=== PATIENT | male | born 1930 | race Caucasian/White ===

== ENCOUNTER → 2016-11-15 | Outpatient (CLI) | payer OTHER ==
[~2016-11-15] MED LIST: ACETAMINOPHEN325 MG PO; ACETAMINOPHEN650 M3 PO; ALDACTONE PO; ALDACTONE25 MG PO; ALEVE PO; ASPIRIN PO; ASPIRIN81 MG PO; ATORVASTATIN CA80 MG PO; AVANDIA PO; CENTRUM SILVER PO; CLOPIDOGREL75 MG PO; COUMADIN PO; CRANBERRY PO; ELIQUIS2.5 MG PO; FAMOTIDINE PO; FLAX SEED OIL1000 MG PO; GLIPIZIDE10 MG PO; GLUCOTROL PO; GLUCOTROL XL PO; HCTZ PO; K-DUR10 MEQ PO; LANOXIN125 MCG PO; LASIX PO; LASIX20 MG PO; LIPITOR80 MG PO; LISINOPRIL PO; LOPRESSOR PO; LORTAB 10/500 T1 TAB PO; LOTREL 5/20 MG1 CAP PO; METFORMIN PO; METOPROLOL TAR25 MG PO; NABUMETONE PO; NITROGLYGERIN0.4 MG SL; NORCO 5/325 TAB1 TAB PO; PEPCID OTC PO; VITAMIN B-12 PO; VYTORIN 10/40 T1 TAB PO; ZESTRIL2.5 MG PO
--- NOTE | ~2016-11-15 | CT55 ---
[facility] A Service of [facility] RADIOLOGY TEXT RESULTS PATIENT: KILO TOMLIN LOCATION: [facility] : 31 UNIT #: [id number] AGE: [address]: Bob Ugalde MD SEX: M ORDER DR: [id number] [facility] [address] [place], [place] [address] [id number] O MR#: [id number] [facility] #: [id number] NAME: KILO TOMLIN : 1930 SEX: M STUDY DATE/TIME: 11/15/2016 UNIT: [facility] ROOM: STUDY DESCRIPTION: CT Chest W Con Attending Physician: Bob Ugalde M.D. Referring Physician: Bob Ugalde M.D. Ordering Physician: Bob Ugalde M.D. Primary Care Physician: Bob Ugalde M.D. MEDICAL IMAGING REPORT This report is preliminary unless electronic signature is present EXAM CT chest with contrast 11/15/2016 09:46 hours HISTORY 86-year-old man with history of type 2 diabetes, hypertension for further evaluation of the left upper lung mass found on chest x-ray 11/08/2016. Chest x-ray: Was obtained for symptoms of cough and congestion for 3 weeks. Patient has no current chest complaints. COMPARISON Chest x-ray 11/08/[address] images were obtained from the thoracic inlet through the adrenal glands. Sagittal and coronal reconstructions were performed. Contrast was Isovue-370 70 mL IV. Total exam DLP 310 mGy-cm. The CT exam was performed with one or more of the following radiation dose reduction techniques: automatic exposure control, adjustment of mA and/or kV according to patient size, and iterative reconstruction. FINDINGS Images through the thoracic inlet demonstrate enlarged right lobe of the thyroid with posterior calcifications and an anterior mixed density 2.5 cm nodule which is indeterminate. This extends into the retrosternal region. Images through the chest are most remarkable for a homogeneous soft tissue mass in the left upper lobe extending from the left hilum contiguously to the superior and lateral pleura corresponding to the density seen on chest film. This measures approximately 7.1 cm transverse x 6.7 cm anterior to posterior and 9.7 cm cephalocaudad and most likely represents a primary lung carcinoma. It is abutting the left upper lobe bronchus and encases the bronchus. There is no definite postobstructive pneumonia seen. There [facility] A Service of [facility] RADIOLOGY TEXT RESULTS PATIENT: KILO TOMLIN LOCATION: [facility] : 31 UNIT #: [id number] AGE: [address]: Bob Ugalde MD SEX: M ORDER DR: are small prevascular nodes measuring 1 cm which are indeterminate. There is no left pleural fluid. Elsewhere the lungs demonstrate no nodules. There is no evidence of pneumonia. Limited views through the upper abdomen demonstrate a normal appearance to the visualized portions of the liver and adrenal glands which are not imaged in their entirety. Bone window images demonstrate degenerative changes in the thoracic spine. There are no fractures. No lytic or blastic bone lesions. IMPRESSION 1. This CT chest confirms the presence of a large homogeneous soft tissue mass extending from an encasing left upper lobe bronchus to the os posterior and lateral pleura measuring up to 7.1 x 6.7 x 9.7 cm. There are two small prevascular lymph nodes measuring only 1 cm which are indeterminate. There is no pleural fluid and no postobstructive pneumonia is seen at this time. 2. The lungs are otherwise clear. 3. The visualized portions of the liver and adrenal glands are normal. These organs are not imaged in their entirety. 4. No bone metastases seen. 5. Enlarged right lobe of thyroid with 2.5 cm predominantly cystic lesion seen with a separate smaller partially calcified lesion posteriorly. These are indeterminate. 6. Suggest surgical consultation. Further evaluation of the left upper lobe mass could be obtained with bronchoscopy, PET CT or CT-guided biopsy. Dictated by... Bessy Yanez M.D. THIS IS AN ELECTRONICALLY VERIFIED REPORT Bessy Yanez M.D. at 11/15/2016 1:34 PM ISAI/pérez TD: 11/15/2016 12:02 JOB #: [id number] MEDICAL IMAGING REPORT COPY
[2016-11-15 10:31] LABS: POC - CREATININE 1.05 mg/dL (0.64-1.27); POC - GFR >60.0 mL/min (>60)
== END | disposition home or self-care (01) ==
LOC: CCAT 09:13
PROVIDERS: Family Medicine
DX: R91.8 Other nonspecific abnormal finding of lung field (principal); E04.9 Nontoxic goiter, unspecified
CPT/HCPCS: 71260; 82565; Q9967

== ENCOUNTER → 2016-12-02 | Outpatient (CLI) | payer OTHER ==
--- NOTE | ~2016-12-02 | US128 ---
[id number] [facility] [address] [place], [place] [address] [id number] O MR#: [id number] Acc #: [id number] NAME: KILO TOMLIN : 1930 SEX: M STUDY DATE/TIME: 12/02/2016 14:52 UNIT: [facility] ROOM: STUDY DESCRIPTION: Thyroid Attending Physician: Bob Ugalde M.D. Referring Physician: Bob Ugalde M.D. Ordering Physician: Bob Ugalde M.D. Primary Care Physician: Bob Ugalde M.D. MEDICAL IMAGING REPORT This report is preliminary unless electronic signature is present EXAM Ultrasound of the thyroid gland INDICATION Thyroid nodules. These were identified on a CT of the chest which was performed 11/15/2016. TECHNIQUE Navarro-scale and color Doppler sonographic images were obtained through the thyroid gland. FINDINGS Right lobe measures 4.6 x 1.6 x 2.3 cm. Left lobe measures 3.8 x 1.2 x 1.3 cm. Isthmus measures about 1 cm in thickness. The thyroid gland is extremely heterogeneous and multiple thyroid nodules are seen. In the inferior pole of the right lobe of thyroid gland, there is a very heterogeneous nodule with some punctate calcifications within it which measures up to 1.9 x 1.4 x 1.1 cm. A hyperechoic nodule is seen adjacent to it measuring 5 x 4 x 5 mm. Pharmaceutical Physician measures a third nodule within the superior pole of the right lobe of the thyroid gland which I am not completely convinced it is actually a nodule. Potentially it may reflect some heterogeneous thyroid parenchyma. Abutting the isthmus, there is an additional very complex nodule with calcification within it measuring up to 2.5 x 1.3 x 2.4 cm. Dense calcification is seen within the left lobe of the thyroid gland. This was also seen on the patient's CT and there is a hypoechoic nodule seen within the left lobe of the thyroid gland measuring 1.3 x 0.7 x 0.8 cm. IMPRESSION 1. This patient has multiple bilateral thyroid nodules. 2 of these located within the right lobe of the thyroid gland do meet size criteria for percutaneous sampling and this is recommended. These include a complex nodule within the inferior pole of the right lobe of the thyroid gland measuring 2.0 x 1.4 x 1.4 cm, and an additional 1 abutting the isthmus measuring up to 2.5 x 1.3 x 2.4 cm. 2. Pharmaceutical Physician measures a third nodule within the superior pole of the right lobe of the thyroid gland which I am not completely convinced is a true nodule, however, attention to this area as well as the patient's additional smaller nodules and a 6-month follow up examination is recommended. Dictated by... Marcelina Gordon M.D. THIS IS AN ELECTRONICALLY VERIFIED REPORT Marcelina Gordon M.D. at 12/03/2016 4:52 PM BUNNY/lino TD: 12/03/2016 12:39 JOB #: [id number] MEDICAL IMAGING REPORT Page 1 of 1 COPY
== END | disposition home or self-care (01) ==
LOC: CGUS 14:30
DX: E04.2 Nontoxic multinodular goiter (principal)
CPT/HCPCS: 76536

== ENCOUNTER → 2016-12-14 | Outpatient (CLI) | payer OTHER ==
--- NOTE | ~2016-12-14 | MR17 ---
[facility] A Service of [facility] RADIOLOGY TEXT RESULTS PATIENT: KILO TOMLIN LOCATION: [facility] : 31 UNIT #: [id number] AGE: [address]: Tiago Ortega MD SEX: M ORDER DR: [id number] [facility] [address] [place], [place] [address] [id number] O MR#: [id number] Acc #: [id number] NAME: KILO TOMLIN : 1930 SEX: M STUDY DATE/TIME: 12/14/2016 14:59 UNIT: [facility] ROOM: STUDY DESCRIPTION: MR Brain WWo Contrast Attending Physician: Tiago Ortega M.D. Referring Physician: Tiago Ortega M.D. Ordering Physician: Tiago Ortega M.D. Primary Care Physician: Bob Ugalde M.D. MRI CENTER REPORT This report is preliminary unless electronic signature is present. EXAM Brain MRI with and without contrast. HISTORY Lung cancer diagnosed November 2016. Chronic history of dizziness. Evaluate for brain malignancy suspected. TECHNIQUE Multiplanar imaging of the brain was performed with and without contrast. 17 mL of MultiHance was used. FINDINGS On diffusion-weighted images, there is no evidence of abnormal restricted diffusion to suggest a recent infarct. The routine brain images show atrophy with moderate chronic ischemic changes in the periventricular deep white matter. There is no evidence of mass effect. No hemorrhages are seen on gradient echo imaging. Postcontrast images show no abnormal enhancement. Extraaxial structures are unremarkable. IMPRESSION Atrophy with moderate chronic ischemic changes around the ventricles. No acute findings. No evidence of metastatic disease. Dictated by... Scott Salmeron M.D. THIS IS AN ELECTRONICALLY VERIFIED REPORT Scott Salmeron M.D. at 12/15/2016 4:28 PM KALPANA/nesha TD: 12/15/2016 10:35 [facility] A Service of [facility] RADIOLOGY TEXT RESULTS PATIENT: KILO TOMLIN LOCATION: [facility] : 31 UNIT #: [id number] AGE: [address]: Tiago Ortega MD SEX: M ORDER DR: JOB #: [id number] MRI CENTER REPORT Page 1 of 1 COPY
== END | disposition home or self-care (01) ==
LOC: CMRI 13:23
DX: C34.12 Malignant neoplasm of upper lobe, left bronchus or lung (principal); R01.1 Cardiac murmur, unspecified; I67.82 Cerebral ischemia; G31.9 Degenerative disease of nervous system, unspecified
CPT/HCPCS: 70553; 93306; A9577

== ENCOUNTER 2017-04-27 18:38 | Inpatient (IN) | payer OTHER ==
[~2017-04-27] VITALS: Ht 165.1 cm; Wt 81.2 kg
--- NOTE | ~2017-04-27 | CO ---
Unit #: [id number] #: [id number] Patient: KILO TOMLIN [id number] [address] [place], [place] [address] [id number] I MR#: [id number] NAME: KILO TOMLIN ROOM: 575 Age: 86 Sex: M Admission Date: 04/27/2017 : 1930 Attending Physician: Manolo Escamilla M.D. Primary Care Physician: Bbo Ugalde M.D. Requesting Physician: Amanda Fierro M.D. Consultation Date: 04/28/2017 CONSULTATION REPORT REASON FOR CONSULTATION Lung cancer, please evaluate. HISTORY OF PRESENT ILLNESS Mr. 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 His daughter called the office to say that he was very short of breath but did not feel like coming to the office and ordered a chest x-ray done. I recommended that his chest x-ray have a CT scan of the chest, rule out PE protocol given its recent chemoradiation therapy and recent diagnosis of malignancy. Following his CT scan, he was sent to the emergency room for further shortness of breathing and admitted with atrial fibrillation with rapid rate, congestive heart failure, and likely acute non ST CO and given elevated troponin level of 4.46. Today he tells me that he is tired and gets short of breath every time he exerts himself. Some of this has been going on for about to weeks after completion of radiation therapy when he gets winded. He tells me his appetite has been variable. PAST HISTORY Stage 3 lung cancer diagnosed in 11/2016 when voice hoarseness led to a chest x-ray with the findings of a large mass in the left upper chest measuring 8.5 x 7.2 x 8.6 cm. Bronchoscopy with biopsy revealed the left upper lobe tumor with paralysis of the vocal cord, with pathology showing a poorly differentiated non-small cell lung cancer. He states it is a stage 3A and underwent concurrent chemoradiation therapy with weekly Taxol-Carboplatin and radiation therapy completed on 02/21/2017. Other medical problems including a history of type 2 diabetes approximately 10 or 15 years, hypertension, cholesterolemia, but no history of coronary artery disease or stroke. PAST SURGICAL HISTORY Knee replacement and hip replacement. FAMILY HISTORY Negative for cancer in the immediate family SOCIAL HISTORY 25 pack year history of smoking. Quit smoking 30 years ago, does not drink any alcohol. He is single, . His youngest daughter lives with him and is primary caregiver. REVIEW OF SYSTEMS Fourteen point review of systems was taken. Unit #: [id number] #: [id number] Patient: KILO TOMLIN CONSTITUTIONAL: Fatigue. Appetite has been variable but generally decreased. EYES: Negative. EARS, NOSE, MOUTH AND THROAT: Negative. CARDIOVASCULAR: No chest pain or palpitations. RESPIRATORY: Shortness of breath without any exertion starting about two weeks after completion of radiation therapy, which will be in early March. Cough with scant expectoration. No hemoptysis. GASTROINTESTINAL: Negative. GENITOURINARY: Negative. NEUROLOGIC: Negative. ALLERGIC/IMMUNOLOGIC: Negative. SKIN: Negative. PSYCHIATRIC: Negative. LYMPHATICS: Negative. PHYSICAL EXAMINATION GENERAL: On examination he is awake, alert and oriented x3. VITAL SIGNS: Temperature 98, pulse 82, blood pressure is 126/66, respiratory rate 16. O2 is 98% on 2 L. HEENT: Eyes - Pupils are equal, react well to light. He was a frail, elderly man, awake, alert and oriented x3. Mild pallor, no icterus. Mucous membranes are dry. NECK: No adenopathy, JVD, thyromegaly. CARDIOVASCULAR: First and second heart sounds are heard. Irregular with a rapid rate. LUNGS: Bilateral rales. ABDOMEN: Soft, nontender. Bowel sounds are active. No organomegaly. EXTREMITIES: Show 1+ edema. Pulses are felt. NEUROLOGIC: He is awake, alert and oriented x3 without any focal findings. SKIN: Negative. LYMPHATICS: Negative. PSYCHIATRIC: Normal affect. DIAGNOSTIC STUDIES LABORATORY STUDIES: TSH 2.13. Basic metabolic panel shows a BUN of 17, creatinine 1, EGFR is 68.3. CBC shows a white count of 7.6, hemoglobin is 11.3, platelet count is 236,000. Her BNP is 719, troponin level is 4.46. IMAGING STUDIES: CT angio of the chest was personally reviewed by me and overall shows his previously known left hilar and upper lobe mass, which is 7 x 5.6 cm, which is smaller with extensive collapse of the left upper lobe from postobstructive. In addition, he has got some nodular densities in the left leg lung with the largest measuring 2.3 cm with a recommendation of being followed. ASSESSMENT AND PLAN Mr. 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 I discussed the situation with patient's and subsequently Dr. Jackson of cardiology about his overall prognosis of lung cancer. I discussed that he was treated with a curative intent. At this point he has no evidence of distant metastatic disease. After discussion, Dr. Jackson planned to do a cardiac catheterization, Unit #: [id number] #: [id number] Patient: KILO TOMLIN angioplasty and stenting if necessary. These were all discussed with Mr. Tomlin. Thank you for allowing us to participate in his care. Dictated by... Robert Mcintosh/monie TD: 04/29/2017 07:42 JOB #: [id number] CONSULTATION REPORT Page 1 of 1 X Tiago Ortega MD X CONSULTATION REPORT
--- NOTE | ~2017-04-27 | EKG ---
PATIENT: KILO TOMLIN UNIT #: [id number] Ventricular Rate: 90 BPM Atrial Rate: 100 BPM QRS Duration: 108 ms Q-T Interval: 368 ms QTC Calculation(Bezet): 450 ms Calculated R Williams: -14 degrees Calculated T Williams: 94 degrees Diagnosis Line: Atrial fibrillation Diagnosis Line: Septal infarct (cited on or before 27-APR-2017) Diagnosis Line: Abnormal ECG Diagnosis Line: When compared with ECG of 27-APR-2017 19:36, Diagnosis Line: (unconfirmed) Diagnosis Line: Vent. rate has decreased BY 46 BPM Diagnosis Line: ST no longer depressed in Anterior leads Diagnosis Line: Confirmed by EVER OCHOA MD ([id number]) on 04/29/2017 Diagnosis Line: 4:57:13 PM INTERPRETING MD: GABRIELA LOW
--- NOTE | ~2017-04-27 | EKG ---
PATIENT: KILO TOMLIN UNIT #: [id number] Ventricular Rate: 73 BPM Atrial Rate: 77 BPM QRS Duration: 100 ms Q-T Interval: 384 ms QTC Calculation(Bezet): 423 ms Calculated R [place]: 1 degrees Calculated T [place]: 88 degrees Diagnosis Line: Atrial fibrillation with premature ventricular or Diagnosis Line: aberrantly conducted complexes Diagnosis Line: Minimal voltage criteria for LVH, may be normal Diagnosis Line: variant Diagnosis Line: Septal infarct (cited on or before 27-APR-2017) Diagnosis Line: Abnormal ECG Diagnosis Line: When compared with ECG of 28-APR-2017 06:39, Diagnosis Line: (unconfirmed) Diagnosis Line: Questionable change in initial forces of Septal Diagnosis Line: leads Diagnosis Line: Confirmed by EVER OCHOA MD ([id number]) on 04/29/2017 Diagnosis Line: 5:16:32 PM INTERPRETING MD: GABRIELA LOW
--- NOTE | ~2017-04-27 | HP ---
Unit #: [id number] #: [id number] Patient: KILO TOMLIN [id number] [address] [place], [place] [address] [id number] I MR#: [id number] NAME: KILO TOMLIN. ROOM: 575 Age: 86 Sex: M Admission Date: 04/27/2017 : 1930 Attending Physician: Amanda Fierro M.D. Primary Care Physician: Bob Ugalde M.D. HISTORY AND PHYSICAL CHIEF COMPLAINT Congestive heart failure, atrial fibrillation with RVR, NSTEMI. HISTORY This very pleasant 86-year-old male with type 2 diabetes mellitus, DJD, lung cancer, is admitted for congestive heart failure. Patient was diagnosed with lung cancer in November, and underwent chemotherapy and radiation, followed by Dr. Ortega. With increasing shortness of breath particularly with exertion over the past three weeks. He was sent for a CTA of his chest. The CTA of his chest showed the patient's lung mass, which is mildly improved, but also shows new congestive heart failure. He was therefore sent to the ER where his initial EKG showed AFib with RVR, rate [address] depression laterally. In the ER he was bolused with 20 mg of IV Cardizem, started on a drip of 10 mg/hour and given 40 mg of IV Lasix, with improvement of his shortness of breath. He denies any chest discomfort with this, or any other symptoms besides the shortness of breath. He also denies cough, fever, sweats and chills. A call was also made to Dr. Plascencia who will be seeing the patient in the morning. Labs are notable for an elevated troponin of 4.46. No previous history of heart disease. PAST MEDICAL HISTORY 1. Lung cancer, followed by Dr. Ortega diagnosed 11/2016. Patient completed a course of XRT and chemotherapy. He has associated vocal cord paralysis. 2. AODM x21 years. 3. Previous history of hypertension and hyperlipidemia. 4. DJD. 5. Bilateral total knee replacement. 6. Left total hip replacement. 7. Cataract extraction. 8. Of note, I do see an echocardiogram performed 10/2012, which was normal with normal ejection fraction. ALLERGIES No known drug allergies. HOME MEDICATIONS Glipizide 10 mg b.i.d. and metformin 1,000 mg b.i.d. FAMILY HISTORY CAD. Unit #: [id number] #: [id number] Patient: KILO TOMLIN SOCIAL HISTORY The patient lives with his daughter. He stopped smoking 30 years ago. Does not drink alcohol. REVIEW OF SYSTEMS Notable for shortness of breath, lung cancer, vocal cord paralysis, AODM, above mentioned surgeries. Previous history of hypertension and hyperlipidemia. All other systems were reviewed and are otherwise negative. PHYSICAL EXAMINATION GENERAL: Very pleasant 86-year-old young appearing male who sounds a bit short of breath but otherwise is in no acute distress. VITAL SIGNS: Temperature 97.6. Initial heart rate was read as 63 but is actually 136, respirations 18, blood pressure 119/86, O2 saturation is 96% on room air. Heart rate now is down to about 110 on 10 mg/hour of Cardizem drip. HEENT: Eyes - PERRLA, extraocular muscles are intact although patient has a slightly disconjugate gaze. Pharynx is benign with poor dentition. NECK: Supple without adenopathy or thyromegaly. Elevated JVD noted. CHEST: Does reveal crackles bilaterally. CARDIAC: Tachy S1 and S2 without definite murmur. ABDOMEN: Bowel sounds are present, no hepatosplenomegaly, tenderness or masses. EXTREMITIES: Trace pedal edema. Pedal pulses are diminished. NEUROLOGIC: Patient is awake, alert and oriented. Cranial nerves are intact. Equal strength throughout. DIAGNOSTIC STUDIES ADMISSION LABS: Troponin 4.02 and 4.46. Unfortunately our [employer] system went down as I am dictating this note. I did review the labs earlier, and the patient had a glucose of about 172. I believe the CBC was normal. CARDIOLOGY STUDIES: EKG shows AFib, RER rate 136, left axis deviation, ST wave abnormalities noted laterally. Mild ST depression laterally. IMAGING STUDIES: Chest x-ray bilateral pleural effusion with left hilar mass and likely left upper lobe postobstructive consolidation. Possible left hilar mass extending from the left upper lobe mass. Congestive heart failure. CTA of the chest negative for PE. Does show left upper lobe and left hilar mass with extensive atelectasis. However, the mass is smaller showing some response to treatment. New large left pleural effusion and small to moderate right pleural effusion suggestive of congestive heart failure with ground glass opacities. Collapse of the left upper lobe postobstructive with possible pneumonia. New left lower lobe infiltrates, which could be inflammatory versus infectious versus atelectasis versus congestive heart failure. New nodular left lung densities. Atherosclerotic heart disease and calcification of the aortic valve. ASSESSMENT 1. Non ST elevation MD and congestive heart failure. 2. Atrial fibrillation with RVR. 3. Lung cancer diagnosed 11/2016, status post chemotherapy and XRT. 4. Postoperative infiltrates likely atelectasis as patient denies cough, fever, sweats, chills or chest pain. No symptoms of pneumonia. Unit #: [id number] #: [id number] Patient: KILO TOMLIN 5. AODM. 6. Hyperlipidemia. 7. GERD. PLANS 1. Cardizem and heparin drip, aspirin, very low dose Lopressor. One dose of Lasix was given in the ER. 2. Repeat labs and cardiac markers in the morning. 3. Cardiology consultation. Dr. Plascencia was notified and the case was discussed with her in the ER. 4. Obtain echo and TSH. 5. Will notify oncology of patient's admission. 6. No indications for antibiotics at this time. 7. Gastritis prophylaxis. 8. Overall prognosis is guarded given patient's lung cancer. 9. I discussed advanced directives with the patient and family, and family states that patient would want to be resuscitated, but would not want prolonged life support. Dictated by Amanda Fierro M.D. AML/ts TD: 04/28/2017 05:03 JOB #: [id number] HISTORY AND PHYSICAL Page 1 of 1 X Amanda Fierro MD HISTORY AND PHYSICAL
--- NOTE | ~2017-04-27 | CR72 ---
[facility] A Service of [facility] RADIOLOGY TEXT RESULTS PATIENT: KILO TOMLIN LOCATION: [place] [address] : 31 UNIT #: [id number] AGE: [address]: Henry Herrera MD SEX: M ORDER DR: [id number] [place] [id number] [facility] [place], [place] [address] [id number] I MR#: [id number] Acc #: [id number] NAME: KILO TOMLIN : 1930 SEX: M STUDY DATE/TIME: 05/01/2017 6:19 UNIT: [facility] ROOM: [facility] STUDY DESCRIPTION: CR Chest Single View Portable Attending Physician: Manolo Escamilla M.D. Ordering Physician: Manolo Escamilla M.D. Primary Care Physician: Bob Ugalde M.D. MEDICAL IMAGING REPORT This report is preliminary unless electronic signature is present EXAM Portable AP view of the chest COMPARISON April 28, 2017; April 27, 2017; November 08, [address] chest dated April 27, 2017. INDICATION 86-year-old male with dyspnea for 4 days. History of CHF and atrial fibrillation. History of lung cancer diagnosed in November 2016. Additional history includes chest pain and hypertension. FINDINGS AND IMPRESSION There is improved left basilar atelectasis and improved left apical opacity, likely some residual mass in the left pulmonary apex. Imaging followup to ensure resolution recommended. There are increased opacities throughout the right lung which may reflect atelectasis given diminished right-sided lung volume from comparison. There appears to be improved trace right pleural effusion. No evidence of pneumothorax. Cardiomediastinal silhouette is within normal limits. Dictated by... Zay Sawyer M.D. THIS IS AN ELECTRONICALLY VERIFIED REPORT Zay Sawyer M.D. at 05/10/2017 1:19 AM Marylin TD: 05/02/2017 03:22 JOB #: [id number] [facility] A Service of [facility] RADIOLOGY TEXT RESULTS PATIENT: KILO TOMLIN LOCATION: [facility] [id number] : 31 UNIT #: [id number] AGE: [address]: Henry Herrera MD SEX: M ORDER DR: MEDICAL IMAGING REPORT Page 1 of 1 COPY
--- NOTE | ~2017-04-27 | EKG ---
PATIENT: KILO TOMLIN UNIT #: [id number] Ventricular Rate: 98 BPM Atrial Rate: 127 BPM QRS Duration: 108 ms Q-T Interval: 364 ms QTC Calculation(Bezet): 464 ms Calculated R [place]: -6 degrees Calculated T [place]: 123 degrees Diagnosis Line: Atrial fibrillation Diagnosis Line: Voltage criteria for left ventricular hypertrophy Diagnosis Line: ST and T wave abnormality, consider lateral ischemia Diagnosis Line: Abnormal ECG Diagnosis Line: When compared with ECG of 29-APR-2017 06:07, Diagnosis Line: ST no longer depressed in Anterior leads Diagnosis Line: Inverted T waves have replaced nonspecific T wave Diagnosis Line: abnormality in Lateral leads Diagnosis Line: Confirmed by MAYE PLATT MD ([id number]) on Diagnosis Line: 05/02/2017 4:51:32 PM INTERPRETING MD: CRISTIAN
--- NOTE | ~2017-04-27 | EKG ---
PATIENT: KILO TOMLIN UNIT #: [id number] Ventricular Rate: 92 BPM Atrial Rate: 326 BPM QRS Duration: 96 ms Q-T Interval: 370 ms QTC Calculation(Bezet): 457 ms Calculated R [place]: -11 degrees Calculated T [place]: 62 degrees Diagnosis Line: Atrial fibrillation Diagnosis Line: Voltage criteria for left ventricular hypertrophy Diagnosis Line: Nonspecific ST and T wave abnormality , probably Diagnosis Line: digitalis effect Diagnosis Line: Abnormal ECG Diagnosis Line: When compared with ECG of 30-APR-2017 12:40, Diagnosis Line: (unconfirmed) Diagnosis Line: Nonspecific T wave abnormality now evident in Diagnosis Line: Inferior leads Diagnosis Line: Confirmed by MAYE PLATT MD ([id number]) on Diagnosis Line: 05/02/2017 4:57:57 PM INTERPRETING MD: CRISTIAN
--- NOTE | ~2017-04-27 | CR72 ---
[facility] A Service of [facility] & [facility] RADIOLOGY TEXT RESULTS PATIENT: KILO TOMLIN LOCATION: [place] [address] : 31 UNIT #: [id number] AGE: [address]: MEGGAN MCCORMICK V SEX: M ORDER DR: [id number] [facility] [address] [place], [place] [address] [id number] I MR#: [id number] Acc #: [id number] NAME: KILO TOMLIN : 1930 SEX: M STUDY DATE/TIME: 04/28/2017 11:39 UNIT: [facility] ROOM: [facility] STUDY DESCRIPTION: CR Chest Single View Portable Attending Physician: Meggan Mccormick M.D. Ordering Physician: Cristo Jackson M.D. Primary Care Physician: Bob Ugalde M.D. MEDICAL IMAGING REPORT This report is preliminary unless electronic signature is present EXAM Portable chest 04/28/2017 COMPARISON 04/27/2017 CLINICAL HISTORY Chest pain, short of air for 1 day. FINDINGS No interval change since 04/27 with left upper chest, consolidation, elevated left hemidiaphragm and right pleural effusion. There is no pneumothorax or new infiltrate. Dictated by... Dilip Zamora M.D. THIS IS AN ELECTRONICALLY VERIFIED REPORT Dilip Zamora M.D. at 04/28/2017 4:58 PM TEV/chang TD: 04/28/2017 14:30 JOB #: [id number] MEDICAL IMAGING REPORT Page 1 of 1 COPY
--- NOTE | ~2017-04-27 | DS ---
Unit #: [id number] #: [id number] Patient: KILO TOMLIN [id number] [address] [address] [id number] I MR#: [id number] NAME: KILO TOMLIN. ROOM: 575 Age: 86 Sex: M Admission Date: 04/27/2017 : 1930 Discharge Date: 05/05/2017 Attending Physician: Henry Herrera M.D. Primary Care Physician: Bob Ugalde M.D. DISCHARGE SUMMARY DISCHARGE DIAGNOSES 1. Non-ST elevation myocardial infarction. 2. Atrial fibrillation with rapid ventricular response. 3. Lung cancer. 4. Acute systolic heart failure. 5. Hypertension. 6. Moderate aortic stenosis. 7. Severe pulmonary hypertension. HOSPITAL COURSE The patient is an 86-year-old male who presented to [facility] on 04/27/17 secondary to increasing shortness of breath. Apparently, the patient was being worked up for the shortness of breath and he had a CTA of his chest that revealed a lung mass and new congestive heart failure. Patient's initial EKG showed AFib with rapid ventricular response and some ST depression. The patient's troponin was noted to be 4.46. Patient was taken for heart cath and showed to have an ejection fraction of about 40%. He was noted to have 70% stenosis of the LAD at the first diagonal and 100% after the first diagonal. Left circumflex was noted to be normal proximally, but the first OM was 99%. The mid left circumflex was also 99%. The RCA was 90% proximally, 75% mid, and 60% distally. The findings were discussed with Dr. Ortega and it was ultimately decided that the patient's plan going forward would be determined by the stage of his lung cancer. The patient is to undergo outpatient PET scan and if the patient has reasonable treatment options, then patient will proceed with PCI and stenting. Patient was started on a beta rowena whose dosage was somewhat difficult to titrate to maintain a heart rate less than 110. Patient had a brief episode of hypotension, which has since resolved. Patient was started on Lasix and an SUZIE inhibitor for his new heart failure. Given control of his heart rate and no planned intervention for his non-ST elevation myocardial infarction/coronary artery disease, the patient is being discharged home to follow up as an outpatient with both cardiology and oncology. DISCHARGE MEDICATIONS 1. Tylenol 650 p.o. q.4 hours p.r.n. 2. Eliquis 2.5 mg p.o. b.i.d. Unit #: [id number] #: [id number] Patient: KILO TOMLIN 3. Glucophage 1000 mg p.o. b.i.d. 4. Atorvastatin 80 mg p.o. q.h.s. 5. Lopressor 25 mg p.o. b.i.d. 6. Furosemide 20 mg p.o. in the morning. 7. Lisinopril 2.5 mg p.o. q.h.s. 8. Plavix 75 mg daily. 9. Spironolactone 12.5 mg p.o. daily. 10. Glipizide 10 mg p.o. b.i.d. FOLLOWUP Patient should follow up with Dr. Manuel Carson, July 12, at 2:00 p.m. Additionally, the patient should follow up with Dr. Ortega next week. Dictated by... Robert Gonzalez/comfort TD: 05/09/2017 08:49 JOB #: [id number] DISCHARGE SUMMARY Page 1 of 1 X Henry Herrera MD X DISCHARGE SUMMARY
--- NOTE | ~2017-04-27 | EKG ---
PATIENT: KILO TOMLIN UNIT #: [id number] Ventricular Rate: 136 BPM Atrial Rate: 131 BPM QRS Duration: 98 ms Q-T Interval: 312 ms QTC Calculation(Bezet): 469 ms Calculated R [place]: -11 degrees Calculated T [place]: 119 degrees Diagnosis Line: Atrial fibrillation with rapid ventricular Diagnosis Line: response Diagnosis Line: Septal infarct , age undetermined Diagnosis Line: ST and T wave abnormality, consider lateral ischemia Diagnosis Line: Abnormal ECG Diagnosis Line: When compared with ECG of 28-JUL-2009 08:59, Diagnosis Line: Atrial fibrillation has replaced Sinus rhythm Diagnosis Line: Septal infarct is now Present Diagnosis Line: ST now depressed in Anterolateral leads Diagnosis Line: T wave inversion now evident in Lateral leads Diagnosis Line: Confirmed by EVER OCHOA MD ([id number]) on 04/29/2017 Diagnosis Line: 4:51:10 PM INTERPRETING MD: GABRIELA LOW
--- NOTE | ~2017-04-27 | CR72 ---
[facility] A Service of [facility] RADIOLOGY TEXT RESULTS PATIENT: KILO TOMLIN LOCATION: [facility] [address] : 31 UNIT #: [id number] AGE: [address]: SHAKIRA MCCORMICKUJ V SEX: M ORDER DR: [id number] [facility] [address] [place], [place] [address] [id number] I MR#: [id number] #: [id number] NAME: KILO TOMLIN. : 1930 SEX: M STUDY DATE/TIME: 04/27/2017 20:10 UNIT: [facility] ROOM: [facility] STUDY DESCRIPTION: CR Chest Single View Portable Attending Physician: Amanda Fierro M.D. Ordering Physician: Kyree Haley M.D. Primary Care Physician: Bob Ugalde M.D. MEDICAL IMAGING REPORT This report is preliminary unless electronic signature is present EXAM Single view of the chest dated 04/27/2017. COMPARISON CT angiogram chest dated 04/27/2017. HISTORY shortness of air, cough for 2 weeks. FINDINGS Single frontal view of the chest was obtained. Refer to the CT angiogram chest from today, which demonstrates significant finding including bilateral pleural effusions, left hilar mass with likely postobstructive consolidation of the left upper lobe. Possible extension of the mass from the left hilar region towards the left upper lobe is probably present, better seen on CT chest. There is some prominence of interstitial markings of the lungs bilaterally. Heart appears to be prominent in the current study but on the CT angiogram chest it was within normal limits. Bilateral shoulder osteoarthritic changes are noted. Dictated by... Vladimir Bryant M.D. THIS IS AN ELECTRONICALLY VERIFIED REPORT Vladimir Bryant M.D. at 04/28/2017 6:32 PM CPR/psc TD: 04/28/2017 01:57 JOB #: [id number] [facility] A Service of [facility] RADIOLOGY TEXT RESULTS PATIENT: KILO TOMLIN LOCATION: [facility] 575[address] : 31 UNIT #: [id number] AGE: [address]: MEGGAN MCCORMICK V SEX: M ORDER DR: MEDICAL IMAGING REPORT Page 1 of 1 COPY
--- NOTE | ~2017-04-27 | CO ---
Unit #: [id number] #: [id number] Patient: KILO TOMLIN [id number] [address] [address] [id number] I MR#: [id number] NAME: KILO TOMLIN ROOM: 575 Age: 86 Sex: M Admission Date: 04/27/2017 : 1930 Attending Physician: Manolo Escamilla M.D. Primary Care Physician: Bob Ugalde M.D. Consultation Date: 04/28/2017 CONSULTATION REPORT REASON FOR CONSULTATION Chest pain. This is a 69-year-old male with a history of newly diagnosed lung cancer in November, status post chemo and radiation therapy, hypertension, hyperlipidemia, diabetes mellitus, and a reformed smoker who quit many years ago. In 2012, he had an echocardiogram with an LVEF of 55%. He presented to the ER per his doctor's recommendation with reports of shortness of breath ongoing for approximately three weeks. A CT of the chest in the ER showed congestive heart failure and EKG revealed A-fib with rapid ventricular rate in the 130s. He was given a Cardizem bolus and started on a Cardizem drip as well as given Lasix IV. He denies chest pain, orthopnea, PND, abdominal swelling, or lower extremity edema. He does report dyspnea on exertion as well as some shortness of breath at rest. His EKG in the ER did show some ST depression. His point of care troponin was 4.02 and his repeat troponin was 3.56. The patient denies a past history of chest pain or discomfort or cardiac disease. He denies hemoptysis or fevers, chills or body aches. He does report a decrease in appetite and is beginning chemotherapy treatments. PAST MEDICAL HISTORY 1. Newly diagnosed lung cancer in November 2016, status post chemo and radiation therapy. 2. Hypertension. 3. Hyperlipidemia. 4. Diabetes mellitus. 5. Reformed smoker. 6. Echo in 2012 showed LVEF of 55%. 7. Degenerative joint disease. PAST SURGICAL HISTORY 1. Bilateral total knee replacement. 2. Left total hip replacement. 3. Cataract extraction. SOCIAL HISTORY He is a reformed smoker who quit approximately 40 years ago. He denies alcohol or illicit drug use. He lives with his daughter. FAMILY HISTORY Denies a family history of premature coronary artery disease. Unit #: [id number] #: [id number] Patient: KILO TOMLIN ALLERGIES No known drug allergies. HOME MEDICATIONS 1. Glipizide 10 mg p.o. twice a day. 2. Glucophage 1000 mg p.o. twice a day. REVIEW OF SYSTEMS A ten point review of systems was conducted and is positive for hoarseness, shortness of breath, and dyspnea on exertion. It is otherwise negative except for what is stated in the HPI. PHYSICAL EXAMINATION VITAL SIGNS: Temp 97.6, heart rate 108, respiratory rate 24, blood pressure 111/62. GENERAL: This is an awake and alert 86-year-old male resting in bed in no acute distress. HEENT: Head is atraumatic and normocephalic. Pupils are equal and reactive to light. Mucous membranes are moist and intact. NECK: Supple. Trachea is midline. No JVD. LUNGS: Expiratory wheezes throughout. No rubs. CARDIOVASCULAR: S1, S2. Irregular rate and rhythm. No murmurs, rubs or gallops heard. ABDOMEN: Soft, nontender, nondistended. Bowel sounds are active. EXTREMITIES: Pulses are palpable. No pedal edema. No cyanosis. NEUROLOGIC: Alert and oriented x3. Follows all commands and moves extremities equally. DIAGNOSTIC STUDIES LABORATORY RESULTS: Sodium 137, potassium 4, chloride 100, BUN 17, creatinine 0.8, glucose 172, hemoglobin 11.3, hematocrit 33.7, white blood cell count 7.6, platelets 236, BNP 719, PT 11.8, INR 1.1, PTT 39.2. Point of care troponin 4.02 and repeat troponin 3.56. TSH 2.13. IMAGING STUDIES: CT of the chest was negative for PE. New large left pleural effusion, small to moderate right pleural effusion. Pulmonary edema and new left lung nodular densities. Mild cardiac enlargement. CARDIOVASCULAR: EKG in the ER shows A-fib with a rapid ventricular rate and nonspecific ST wave changes and possible old septal NV. Repeat EKG shows A-fib with a controlled ventricular rate of 90 and nonspecific T wave abnormalities. ASSESSMENT 1. CHF, question systolic CHF, rule out pericardial effusion. 2. Endobronchial encroachment of lung cancer with atelectasis? 3. Atrial fib with rapid ventricular rate, question onset. 4. Lung cancer, diagnosed 11/2016, on chemo and radiation. 5. Non-insulin dependent diabetes mellitus. 6. Hypertension. 7. Non-STEMI, troponin 4.02. 8. Hyperlipidemia. PLAN 1. Portable chest x-ray now. 2. 2D echo and Doppler today. 3. Lasix 40 mg IV now and then b.i.d. 4. Digoxin for heart rate control. Unit #: [id number] #: [id number] Patient: KILO TOMLIN 5. Continue Cardizem drip and titrate to keep heart rate below 100s. 6. Continue heparin drip. 7. EKG in the a.m. 8. Check TSH and T4. 9. Add statin. 10. BMP and CBC in a.m. 11. Plan for cardiac cath tomorrow. 12. NPO after midnight. Thank you for asking us to see the patient. We appreciate the consult. Dictated by... Ericka Ambrocio APRN for Cristo Jacskon M.D. JOSE/david TD: 04/29/2017 09:40 JOB #: [id number] CONSULTATION REPORT Page 1 of 1 X X CONSULTATION REPORT
[~2017-04-27 18:38] MED LIST changes: -ACETAMINOPHEN325 MG PO; -ACETAMINOPHEN650 M3 PO; -ALDACTONE PO; -ALDACTONE25 MG PO; -ASPIRIN81 MG PO; -ATORVASTATIN CA80 MG PO; -CLOPIDOGREL75 MG PO; -ELIQUIS2.5 MG PO; -GLIPIZIDE10 MG PO; -GLUCOTROL PO; -K-DUR10 MEQ PO; -LANOXIN125 MCG PO; -LASIX20 MG PO; -LIPITOR80 MG PO; -LISINOPRIL PO; -LOPRESSOR PO; -METFORMIN PO; -METOPROLOL TAR25 MG PO; -NITROGLYGERIN0.4 MG SL; -ZESTRIL2.5 MG PO
[2017-04-27 20:26] LABS: BASOPHIL% 0.5 % (0-2.5); EOSINOPHIL# 0.3 X10e3 (0-0.7); EOSINOPHIL% 2.7 % (0.0-7.0); HEMATOCRIT 36.6 % (38.0-50.0); LYMPHOCYTE# 1.3 X10e3 (1.0-3.5); LYMPHOCYTE% 13.1 % (17.0-45.0); MEAN CELL VOLUME 92.4 FL (83-96); MEAN CORPUSCULAR HEMOGLOBIN 30.3 PG (28-34); MEAN CORPUSCULAR HGB CONC 32.8 g/dL (30-36); MONOCYTE# 0.8 X10e3 (0-1.0); MONOCYTE% 8.1 % (3.0-12.0); NEUTROPHIL# 7.3 X10e3 (1.5-7.1); NEUTROPHIL% 75.6 % (40-75); PLATELET COUNT 279 X10e3 (140-420); RED BLOOD COUNT 3.96 X10e (3.90-5.60); RED CELL DISTRIBUTION WIDTH 17.5 % (11.0-15.5); WHITE BLOOD COUNT 9.7 X10e3 (4.0-10.5)
[2017-04-27 20:28] LABS: DIFF IND NO
[2017-04-27 20:44] LABS: ALBUMIN SERUM 3.5 g/dL (3.5-5.0); BILIRUBIN, DIRECT 0.1 mg/dL (0.0-0.2); BILIRUBIN,INDIRECT 0.7 mg/dL (0.0-0.9); BILIRUBIN,TOTAL 0.8 mg/dL (0.2-2.0); BUN/CREATININE RATIO 21.25; CALCIUM SERUM 9.2 mg/dL (8.4-10.2); CREATININE SERUM 0.8 mg/dL (0.6-1.4); GLOM FILT RATE Estimated 81.5 mL/min (>60); PROTEIN TOTAL SERUM 7.6 g/dL (6.0-8.3)
[2017-04-27 20:46] LABS: POC - TROPONIN 4.02 ng/mL (<=0.05)
[2017-04-27] MEDS ORDERED: GLIPIZIDE10 MG PO (20:51)
[2017-04-27] MEDS ORDERED: METFORMIN PO (20:52)
[2017-04-27 21:54] LABS: POC - CKMB 25.7 ng/mL (0.0-7.9); POC - TROPONIN 4.46 ng/mL (<=0.05)
[2017-04-27 23:29] LABS: PARTIAL THROMBOPLASTIN TIME 30.5 SECONDS (23.5-31.3); PROTHROMBIN TIME (PATIENT) 11.3 SECONDS (10.0-11.7)
[2017-04-28 03:07] LABS: URINE APPEARANCE CLEAR; URINE BILIRUBIN NEG (NEG); URINE BLOOD NEG (NEG); URINE COLOR YELLOW; URINE GLUCOSE NEG (NEG); URINE KETONE NEG (NEG); URINE LEUKOCYTE ESTERASE NEG (NEG); URINE NITRATE NEG (NEG); URINE PROTEIN NEG (NEG); URINE SPECIFIC GRAVITY 1.021 (1.003-1.035)
[2017-04-28 06:03] LABS: HEMATOCRIT 33.7 % (38.0-50.0); HEMOGLOBIN 11.3 gm/dL (13.0-16.0); MEAN CELL VOLUME 92.3 FL (83-96); MEAN CORPUSCULAR HEMOGLOBIN 30.9 PG (28-34); MEAN CORPUSCULAR HGB CONC 33.5 g/dL (30-36); MEAN PLATELET VOLUME 8.3 FL (6.5-11.5); RED BLOOD COUNT 3.66 X10e (3.90-5.60); RED CELL DISTRIBUTION WIDTH 17.7 % (11.0-15.5); WHITE BLOOD COUNT 7.6 X10e3 (4.0-10.5)
[2017-04-28 06:18] LABS: INR 1.1; PROTHROMBIN TIME (PATIENT) 11.8 SECONDS (10.0-11.7)
[2017-04-28 07:34] LABS: CALCIUM SERUM 9.1 mg/dL (8.4-10.2); GLOM FILT RATE Estimated 68.3 mL/min (>60); POTASSIUM 4.5 mmol/L (3.5-5.1)
[2017-04-28 07:55] LABS: %MB 8.3 % (0.0-4.0)
[2017-04-29 05:37] LABS: MEAN CELL VOLUME 91.9 FL (83-96); MEAN CORPUSCULAR HEMOGLOBIN 30.5 PG (28-34); MEAN CORPUSCULAR HGB CONC 33.2 g/dL (30-36); MEAN PLATELET VOLUME 8.5 FL (6.5-11.5); RED BLOOD COUNT 3.59 X10e (3.90-5.60); RED CELL DISTRIBUTION WIDTH 17.2 % (11.0-15.5); WHITE BLOOD COUNT 7.5 X10e3 (4.0-10.5)
[2017-04-29 05:45] LABS: INR 1.1; PARTIAL THROMBOPLASTIN TIME 63.8 SECONDS (23.5-31.3); PROTHROMBIN TIME (PATIENT) 11.8 SECONDS (10.0-11.7)
[2017-04-29 06:57] LABS: BUN/CREATININE RATIO 22.5; CALCIUM SERUM 8.5 mg/dL (8.4-10.2); CREATININE SERUM 0.8 mg/dL (0.6-1.4); GLOM FILT RATE Estimated 81.5 mL/min (>60); POTASSIUM 3.5 mmol/L (3.5-5.1)
[2017-04-29 15:31] LABS: MAGNESIUM 1.7 mg/dL (1.6-3.0); POTASSIUM 3.7 mmol/L (3.5-5.1)
[2017-04-30 06:21] LABS: MAGNESIUM 1.9 mg/dL (1.6-3.0); POTASSIUM 3.2 mmol/L (3.5-5.1)
[2017-04-30 14:56] LABS: %MB 3.4 % (0.0-4.0); MB 4.2 ng/ml
[2017-05-01 06:26] LABS: BUN/CREATININE RATIO 28.33; CALCIUM SERUM 8.4 mg/dL (8.4-10.2); CREATININE SERUM 0.6 mg/dL (0.6-1.4); GLOM FILT RATE Estimated 91.7 mL/min (>60); MAGNESIUM 1.9 mg/dL (1.6-3.0); POTASSIUM 3.3 mmol/L (3.5-5.1)
[2017-05-02 06:08] LABS: BUN/CREATININE RATIO 23.75; CALCIUM SERUM 8.9 mg/dL (8.4-10.2); CREATININE SERUM 0.8 mg/dL (0.6-1.4); GLOM FILT RATE Estimated 81.5 mL/min (>60); MAGNESIUM 1.9 mg/dL (1.6-3.0); POTASSIUM 3.4 mmol/L (3.5-5.1)
[2017-05-03 06:19] LABS: CALCIUM SERUM 9.2 mg/dL (8.4-10.2); CREATININE SERUM 0.8 mg/dL (0.6-1.4); GLOM FILT RATE Estimated 81.5 mL/min (>60); MAGNESIUM 1.8 mg/dL (1.6-3.0); POTASSIUM 3.6 mmol/L (3.5-5.1)
[2017-05-03 09:59] LABS: HEMOGLOBIN 12.3 gm/dL (13.0-16.0); MEAN CELL VOLUME 92.3 FL (83-96); MEAN CORPUSCULAR HEMOGLOBIN 30.6 PG (28-34); MEAN CORPUSCULAR HGB CONC 33.1 g/dL (30-36); MEAN PLATELET VOLUME 8.6 FL (6.5-11.5); RED BLOOD COUNT 4.01 X10e (3.90-5.60); RED CELL DISTRIBUTION WIDTH 16.9 % (11.0-15.5); WHITE BLOOD COUNT 9.6 X10e3 (4.0-10.5)
[2017-05-04 07:09] LABS: CALCIUM SERUM 8.9 mg/dL (8.4-10.2); GLOM FILT RATE Estimated 68.3 mL/min (>60); POTASSIUM 3.7 mmol/L (3.5-5.1)
[2017-05-05 06:15] LABS: HEMATOCRIT 34.1 % (38.0-50.0); HEMOGLOBIN 11.4 gm/dL (13.0-16.0); MEAN CELL VOLUME 91.5 FL (83-96); MEAN CORPUSCULAR HEMOGLOBIN 30.7 PG (28-34); MEAN CORPUSCULAR HGB CONC 33.6 g/dL (30-36); MEAN PLATELET VOLUME 8.4 FL (6.5-11.5); RED BLOOD COUNT 3.72 X10e (3.90-5.60); RED CELL DISTRIBUTION WIDTH 16.5 % (11.0-15.5); WHITE BLOOD COUNT 8.2 X10e3 (4.0-10.5)
[2017-05-05 06:42] LABS: BUN/CREATININE RATIO 25.55; CALCIUM SERUM 8.8 mg/dL (8.4-10.2); CREATININE SERUM 0.9 mg/dL (0.6-1.4); GLOM FILT RATE Estimated 77.6 mL/min (>60); POTASSIUM 3.7 mmol/L (3.5-5.1)
[2017-05-05] MEDS ORDERED: ACETAMINOPHEN325 MG PO (13:56)
[2017-05-05] MEDS ORDERED: ELIQUIS2.5 MG PO (13:57)
[2017-05-05] MEDS ORDERED: LIPITOR80 MG PO (13:58)
[2017-05-05] MEDS ORDERED: METOPROLOL TAR25 MG PO (13:59)
[2017-05-05] MEDS ORDERED: LASIX20 MG PO (14:00)
[2017-05-05] MEDS ORDERED: ZESTRIL2.5 MG PO (14:01)
[2017-05-05] MEDS ORDERED: CLOPIDOGREL75 MG PO (14:02)
[2017-05-05] MEDS ORDERED: ALDACTONE25 MG PO (14:03)
== END 2017-05-05 15:45 | disposition home or self-care (01) | DRG 280 ==
LOC: CED 18:38 → CEDOF 23:30 → C5C 23:30 → CEDOF 04-28 01:05 → C5C 04-28 01:05
PROVIDERS: Emergency Medicine; Internal Medicine; Internal Medicine Hematology & Oncology
PROC: B32TYZZ Computerized Tomography (CT Scan) of Left Pulmonary Artery using Other Contrast (ICD-10-PCS; 2017-04-27)
PROC: B32SYZZ Computerized Tomography (CT Scan) of Right Pulmonary Artery using Other Contrast (ICD-10-PCS; 2017-04-27)
PROC: B24BZZZ Ultrasonography of Heart with Aorta (ICD-10-PCS; 2017-04-28)
PROC: 4A023N7 Measurement of Cardiac Sampling and Pressure, Left Heart, Percutaneous Approach (ICD-10-PCS; principal; 2017-04-29)
PROC: B211YZZ Fluoroscopy of Multiple Coronary Arteries using Other Contrast (ICD-10-PCS; 2017-04-29)
PROC: B215YZZ Fluoroscopy of Left Heart using Other Contrast (ICD-10-PCS; 2017-04-29)
DX: I21.4 Non-ST elevation (NSTEMI) myocardial infarction (principal); I50.21 Acute systolic (congestive) heart failure; I27.2 Other secondary pulmonary hypertension; J44.9 Chronic obstructive pulmonary disease, unspecified; I48.2 Chronic atrial fibrillation; C34.90 Malignant neoplasm of unspecified part of unspecified bronchus or lung; I11.0 Hypertensive heart disease with heart failure; Z87.891 Personal history of nicotine dependence; I35.0 Nonrheumatic aortic (valve) stenosis; E11.9 Type 2 diabetes mellitus without complications; Z79.84 Long term (current) use of oral hypoglycemic drugs; E78.5 Hyperlipidemia, unspecified; K21.9 Gastro-esophageal reflux disease without esophagitis; E87.6 Hypokalemia; Z96.642 Presence of left artificial hip joint; Z96.653 Presence of artificial knee joint, bilateral; Z98.49 Cataract extraction status, unspecified eye; Z82.49 Family history of ischemic heart disease and other diseases of the circulatory system
CPT/HCPCS: 71010; 71275; 80048; 80061; 80076; 80162; 81003; 82550; 82553; 82565; 82947; 83605; 83735; 83880; 84132; 84439; 84443; 84484; 85025; 85027; 85610; 85730; 87040; 93005; 93306; 94760; 96365; 96366; 96375; 99152; 99153; 99291; C1769; C1887; C1894; J1160; J1644; J1650; J1815; J1940; J2250; J2310; J3010; J3475; Q9967

== ENCOUNTER → 2017-04-27 | Outpatient (CLI) | payer OTHER ==
--- NOTE | ~2017-04-27 | CT16 ---
[facility] A Service of [facility] & [facility] RADIOLOGY TEXT RESULTS PATIENT: KILO TOMLIN LOCATION: [facility] : 31 UNIT #: [id number] AGE: [address]: Tiago Ortega MD SEX: M ORDER DR: [id number] [facility] [address] [place], [place] [address] [id number] O MR#: [id number] [facility] #: [id number] NAME: KILO TOMLIN : 1930 SEX: M STUDY DATE/TIME: 04/27/2017 17:29 UNIT: [facility] ROOM: STUDY DESCRIPTION: CT Angio Chest for PE Attending Physician: Tiago Ortega M.D. Referring Physician: Tiago Ortega M.D. Ordering Physician: Tiago Ortega M.D. Primary Care Physician: Bob Ugalde M.D. MEDICAL IMAGING REPORT This report is preliminary unless electronic signature is present EXAM CT angiography chest for PE HISTORY Checking for PE. Short of air 1 week. Right-sided chest pain and back pain. Cough and congestion. History of lung cancer. Radiation chemotherapy [address] pulmonary angiography performed with intravenous administration of 100 mL Isovue-370. COMPARISON STUDIES Comparison to images from CT/PET scan 12/17/2016. FINDINGS Visualized thyroid shows a 2.2 cm hypodense right paracentral thyroid nodule lower pole right thyroid lobe, just below the manubrium. No change. No axillary adenopathy. No right hilar adenopathy. There is a left hilar and suprahilar mass lesion. Its overall margins are difficult to fully determine due to extensive adjacent atelectatic lung in the left upper lobe. On transverse images at level of the left main pulmonary artery, it measures approximately 7 cm x 5.[address]/PET scan December 17, it measured approximately 8.2 cm x 7.5 cm. There has probably been some response to treatment. The heart is mildly enlarged. This appears more pronounced than on prior examination. Correlate clinically. Large left effusion tracking to the apex. This is new. Ftfrs-ox-cktyejbw right effusion, also new. The liver shows no suspicious focal abnormality. Gallbladder, spleen, pancreas unremarkable. Adrenal glands unremarkable. The left kidney is normal in appearance in its visualized extent. Patient has a known pelvic right kidney, not visualized on this examination. There are mildly prominent portal nodes, unchanged from prior CT/PET scan [facility] A Service of [facility] RADIOLOGY TEXT RESULTS PATIENT: KILO TOMLIN [facility] : 31 UNIT #: [id number] AGE: [address]: Tiago Ortega MD SEX: M ORDER DR: and not demonstrating abnormal PET tracer accumulation on CT/PET scan. The esophagus, stomach, visualized portions of small bowel and colon are unremarkable. The pulmonary parenchyma shows respiratory motion artifact. There is extensive collapse of the left upper lobe. Similar appearance to prior examination. Residual left upper lobe less well-aerated than on prior examination. There are some patchy densities in the inferior left upper lobe favored to represent new areas of atelectasis or pneumonia. Some components of airspace edema may be present. In the left lower lobe, there is a new patchy and consolidative airspace disease favored to be a combination of atelectasis, possible airspace edema or pneumonia. The right lung shows hazy ground-glass densities and mild linear interstitial prominence. There are new areas of somewhat nodular density in the right lung. One measuring about 1 cm in diameter, image 32. A second measuring about 1.1 cm in the upper lobe, image 39. A third in the lateral segment right middle lobe measuring about 1.1 cm x 2.3 cm. These may represent areas of infectious or inflammatory change. Atypical presentation of airspace edema or atelectasis could be considered. Short-interval followup to confirm resolution is recommended. The pulmonary arteries are well opacified. The left-sided mass encases the left upper and lower lobe pulmonary arteries and exerts some mass effect upon them. No left pulmonary emboli. No right-sided pulmonary emboli. Images are somewhat degraded by respiratory motion artifact. The aorta shows aortic valvular calcifications. Ascending aorta measures about 3.3 cm in diameter. No change. The study was not performed for assessment of the aorta. The visualized aortic branch vessels appear grossly patent. BONY STRUCTURES: The bony structures show no acute abnormality. There is no clear indication of osseous metastatic disease. IMPRESSION 1. Dr. Ortega's service has been paged for discussion of findings at time of this dictation. No PE. There is no evidence of aortic aneurysm or dissection. 2. Patient has a known left hilar and upper lobe neoplastic mass. On today's examination, its margins are difficult to accurately determine due to extensive adjacent atelectatic lung. The mass measures approximately 7 cm x 5.6 cm transversely at level of the left hilum. In December 2016, it measured about 8.2 cm x 7.5 cm. There probably has been some response to treatment. 3. New large left pleural effusion and urfos-ds-wdjahxlc right pleural effusion. Pulmonary parenchyma shows areas of patchy ground-glass density and linear interstitial prominence. Constellation of findings suggests moderate pulmonary edema with interstitial airspace and prominent pleural space involvement. 4. There is extensive collapse in the left upper lobe, felt to be post obstructive in etiology. Some component of post-obstructive pneumonia could be considered. In addition, there are new patchy STS. [facility] A Service of [facility] RADIOLOGY TEXT RESULTS PATIENT: KILO TOMLIN LOCATION: [facility] : 31 UNIT #: [id number] AGE: [address]: Tiago Ortega MD SEX: M ORDER DR: and confluent airspace densities in the left lower lobe, likely involving components of atelectasis, airspace edema and/or pneumonia. 5. There are new, somewhat nodular densities in the left lung. See locations and sizes in body of report. Upper and middle lobes are involved with the largest density measuring up to 2.3 cm in diameter in the lateral right middle lobe. While new neoplastic nodules are not excluded, I would favor that these are of an infectious or inflammatory nature or perhaps an atypical presentation of airspace edema or pneumonia. Short-interval followup to confirm resolution strongly recommended. 6. There is mild cardiac enlargement, more pronounced than in December 2016. 7. Extensive atherosclerotic arterial calcification in the coronary arteries. Calcifications at the aortic valve also noted. 8. No acute abnormality suggested in upper abdomen. 9. No acute-appearing bony abnormality. Dictated by... Kilo Gonzalez M.D. THIS IS AN ELECTRONICALLY VERIFIED REPORT Kilo Gonzalez M.D. at 04/28/2017 6:35 PM SUSANA/charly TD: 04/27/2017 23:02 JOB #: [id number] MEDICAL IMAGING REPORT Page 1 of 1 COPY
[2017-04-27 17:17] LABS: POC - CREATININE 1.11 mg/dL (0.64-1.27); POC - GFR >60.0 mL/min (>60)
== END | disposition home or self-care (01) ==
LOC: CCAT 16:30
PROVIDERS: Internal Medicine Hematology & Oncology
DX: R06.02 Shortness of breath (principal); J90 Pleural effusion, not elsewhere classified; R91.8 Other nonspecific abnormal finding of lung field; J98.4 Other disorders of lung; I51.7 Cardiomegaly; I25.10 Atherosclerotic heart disease of native coronary artery without angina pectoris; I35.8 Other nonrheumatic aortic valve disorders; J98.11 Atelectasis
CPT/HCPCS: 71275; 82565; Q9967

== ENCOUNTER 2017-05-19 09:26 | Inpatient (IN) | payer OTHER ==
[~2017-05-19] VITALS: Ht 170.2 cm; Wt 74.5 kg
--- NOTE | ~2017-05-19 | NM69 ---
[facility] A Service of [facility] & [facility] RADIOLOGY TEXT RESULTS PATIENT: KILO TOMLIN LOCATION: [place] [address]- : 31 UNIT #: [id number] AGE: [address]: Cristo Jackson MD SEX: M ORDER DR: [id number] [facility] [address] [place], [place] [address] [id number] I MR#: [id number] Acc #: [id number] NAME: KILO TOMLIN : 1930 SEX: M STUDY DATE/TIME: 05/22/2017 11:11 UNIT: [facility] ROOM: [facility] STUDY DESCRIPTION: NM Pulm Vent and Perf Attending Physician: Cristo Jackson M.D. Ordering Physician: Antonia Chisholm M.D. Primary Care Physician: Bob Ugalde M.D. MEDICAL IMAGING REPORT This report is preliminary unless electronic signature is present EXAM VQ lung scan HISTORY Lung cancer. Dyspnea for the past several weeks. TECHNIQUE The patient was administered 32.4 mCi of technetium 99m DTPA aerosol for ventilation and 6 mCi of technetium 99m MAA for perfusion. Multiple views were obtained over the chest. FINDINGS Patchy areas of matched ventilation perfusion defect are noted particularly on the left at the site of the patient's abnormal chest x-ray where there is a left suprahilar mass. There is no evidence of ventilation-perfusion mismatch to suggest pulmonary embolism. IMPRESSION Low probability scan for pulmonary embolism. This study was correlated with a chest x-ray obtained the same day. STAT * RESULT Dictated by... Scott Salmeron M.D. THIS IS AN ELECTRONICALLY VERIFIED REPORT Scott Salmeron M.D. at 05/22/2017 12:42 PM Daja TD: 05/22/2017 12:06 [facility] A Service of [facility] & [facility] RADIOLOGY TEXT RESULTS PATIENT: KILO TOMLIN LOCATION: [place] [address] : 31 UNIT #: [id number] AGE: [address]: Cristo Jackson MD SEX: M ORDER DR: JOB #: [id number] MEDICAL IMAGING REPORT Page 1 of 1 COPY
--- NOTE | ~2017-05-19 | CR63 ---
[facility] A Service of [facility] RADIOLOGY TEXT RESULTS PATIENT: KILO TOMLIN LOCATION: [facility] [address] : 31 UNIT #: [id number] AGE: [address]: Cristo Jackson MD SEX: M ORDER DR: [id number] [facility] [address] [place] [facility] [facility]. [place], [place] [address] [id number] I MR#: [id number] Acc #: [id number] NAME: KILO TOMLIN. : 1930 SEX: M STUDY DATE/TIME: 05/22/2017 10:37 UNIT: [facility] ROOM: [facility] STUDY DESCRIPTION: CR Chest 2 View Attending Physician: Cristo Jackson M.D. Ordering Physician: Cristo Jackson M.D. Primary Care Physician: Bob Ugalde M.D. MEDICAL IMAGING REPORT This report is preliminary unless electronic signature is present EXAM Chest x-ray HISTORY Lung cancer diagnosed 2017. Shortness of breath. Ventilation-perfusion lung scan performed today. TECHNIQUE Two views of the chest were obtained and compared with 05/19/2017. FINDINGS Since the previous examination, consolidative changes and pleural thickening in the left suprahilar region are stable. No new focal infiltrates are noted. The right costophrenic angle remains blunted. Vascular markings are within normal limits. IMPRESSION No change from the previous examination. Left suprahilar mass with pleural thickening and probable loculated pleural effusion. No new infiltrates are seen since the previous exam. Dictated by... Scott Salmeron M.D. THIS IS AN ELECTRONICALLY VERIFIED REPORT Scott Salmeron M.D. at 05/24/2017 6:00 AM RLF/bhavani TD: 05/23/2017 07:36 JOB #: [id number] MEDICAL IMAGING REPORT [facility] A Service [facility] RADIOLOGY TEXT RESULTS PATIENT: KILO TOMLIN LOCATION: [place] [address] : 31 UNIT #: [id number] AGE: [address]: Cristo Jackson MD SEX: M ORDER DR: Page 1 of 1 COPY
--- NOTE | ~2017-05-19 | HP ---
Unit #: [id number] #: [id number] Patient: KILO TOMLIN [id number] [address] [place], [place] [address] [id number] MR#: [id number] NAME: KILO TOMLIN ROOM: 330 Age: 86 Sex: M Admission Date: 05/19/2017 : 1930 Attending Physician: Cristo Jackson M.D. Primary Care Physician: Bob Ugalde M.D. HISTORY AND PHYSICAL HISTORY OF PRESENT ILLNESS This is an 86-year-old white male who is known to Dr. Jackson who has a history of coronary artery disease where he underwent cardiac catheterization in April 2015 where he was found to have chronic total occlusion to the LAD. There was 75-80% stenosis to the first diagonal branch with two areas of stenosis in the posterior marginal branch of the circumflex artery. Right coronary artery also had distal stenosis of 80-90%. He was continued on medical management because he was diagnosed with stage III lung cancer in November of this year for which he has been undergoing chemo and radiation therapy. He recently had a PET scan done which showed shrinkage of his tumor. He has been followed by Dr. Ortega. The patient comes to the emergency room with the complaint of substernal chest heaviness and shortness of breath that started at midnight. His symptoms lasted all night long. Prior to yesterday, he had dyspnea on exertion with exertional angina. He denies paroxysmal nocturnal dyspnea or orthopnea. He does have leg edema. No recent fever, chills, or urinary symptoms. He came to the emergency room for evaluation where he was found to be in atrial fibrillation with rapid ventricular response where his rate was up to 120 beats per minute. He was treated with a single IV Cardizem bolus. His rate improved. His troponin was negative. Electrocardiogram showed no acute ischemic changes. He had a mildly elevated BNP of 560 with chest x-ray showing no heart failure. His lactic acid was also elevated at 3.7. PAST MEDICAL HISTORY 1. Cardiac catheterization April 29, 2017, showed an ejection fraction of 40% to 45% with moderate aortic stenosis with peak gradient of 29 mean of 20 mmHg. Left main with severe calcification. LAD had severe calcification in the proximal portion. LAD chronically totally occluded after the first septal sash assembler. First diagonal branch 75-80% stenosis. Left circumflex posterior marginal branch with two areas of 99% stenosis. Right coronary artery at the junction of the proximal third and distal two-thirds 80-90%. Mid vessel 75% with distal 40-45% diffuse disease. PDA and PLV branches normal. 2. A 2D echocardiogram April 28, 2017, showed an ejection fraction equal to 30% with severe aortic stenosis. Aortic valve area 0.6 centimeters square with a maximum gradient of 37 mmHg. Mean gradient 29. Right ventricular systolic pressure 61 mmHg. There is mild to moderate tricuspid regurgitation. 3. Hypertension. 4. Hyperlipidemia. 5. Diabetes mellitus type 2. Unit #: [id number] #: [id number] Patient: KILO TOMLIN 6. Chronic systolic heart failure. 7. Small cell lung cancer stage III with history of chemo and radiation therapy. 8. Atrial fibrillation, on Eliquis. 9. Former smoker. PAST SURGICAL HISTORY 1. Cataract extraction. 2. Bilateral total knee replacement. 3. Left total hip replacement. SOCIAL HISTORY The patient lives with his daughter. He quit smoking more than 30 years ago. There is no illicit drug or alcohol use. FAMILY HISTORY Negative for coronary artery disease. ALLERGIES No known drug allergies. HOME MEDICATIONS 1. Acetaminophen 650 mg q.4 hours p.r.n. 2. Eliquis 2.5 mg b.i.d. 3. Glucophage 1000 mg b.i.d. 4. Atorvastatin 80 mg at bedtime. 5. Metoprolol tartrate 25 mg b.i.d. 6. Furosemide 20 mg daily. 7. Lisinopril 2.5 mg at bedtime. 8. Plavix 75 mg daily. 9. Aldactone 25 mg daily. 10. Glucotrol 10 mg b.i.d. REVIEW OF SYSTEMS CONSTITUTIONAL: Negative for fever or chills. Has no additional weight loss. HEENT: Has persistent hoarseness to his voice. No hearing or visual changes. Has dizziness occasionally upon standing. CARDIOVASCULAR: Has chest pain as described in the HPI. Denies palpitations. No paroxysmal nocturnal dyspnea or orthopnea. No syncope or near syncope. RESPIRATORY: Has dyspnea that occurs on exertion. A rare cough but no hemoptysis. GASTROINTESTINAL: No abdominal pain, nausea, or vomiting. No constipation or melena. EXTREMITIES: Positive for lower extremity edema. PHYSICAL EXAMINATION VITAL SIGNS: Blood pressure 107/64, heart rate 88, temperature 97.7. GENERAL: This is an 86-year-old, elderly, white male who is in no acute distress. NEUROLOGIC: He has a raspy voice but no obvious focal weaknesses. NECK: Trachea is midline. No thyromegaly or lymphadenopathy. No jugular venous distention. HEART: S1 and S2 heart sounds are normal. No murmurs, rubs, or clicks. Regular rate and rhythm. LUNGS: Clear on the left with diminished breath sounds on the right. No wheezes or rhonchi. Unit #: [id number] #: [id number] Patient: KILO TOMLIN ABDOMEN: Soft and nontender with bowel sounds present. EXTREMITIES: With 1+ leg edema. SKIN: Warm and dry. DIAGNOSTIC STUDIES LABORATORY: Hemoglobin 12.9, hematocrit 39.2, platelet count 290,000, white count 9.4. Sodium 137, potassium 4.1, BUN 17, creatinine 1.1, glucose 231, magnesium 1.6. BNP 560. Lactic acid 3.7. Troponin less than 0.05. Blood cultures pending. IMAGING: Chest x-ray shows mild cardiomegaly. There is persistent, increased mass-like opacity in the left upper lung. Mild interstitial change in the right lung with a small right pleural effusion. CARDIOLOGY: EKG atrial fibrillation with rapid ventricular response with a rate of 103 beats per minute. There is a questionable old septal infarct. Left axis deviation. IMPRESSION 1. Unstable angina. 2. Dyspnea. 3. Elevated lactic acid, questionable sepsis. 4. Coronary artery disease with chronic total occlusion to LAD. Marginal branch 99% stenosis with right coronary artery 80% to 90% stenosis. 5. Atrial fibrillation with rapid ventricular response. 6. Acute on chronic systolic heart failure. 7. Severe aortic stenosis. 8. Pulmonary hypertension. 9. Hypertension. 10. Hyperlipidemia. 11. Diabetes mellitus type 2. PLAN 1. Cardiology was asked to see the patient in the emergency room because of chest pain. His chest pain is exertional in nature suggestive of ischemic heart disease. He has known coronary artery disease with critical stenosis in the marginal and right coronary artery branch. Because his recent PET scan showed improvement of his lung mass per Dr. Ortega, will proceed with PCI in the a.m. This has been discussed with the patient and his family, and they are agreeable. 2. Will hold Eliquis for now. 3. Heart rate is currently controlled on beta rowena. 4. Will continue Plavix and add aspirin. 5. Will have Dr. Vera to see the patient for dyspnea. 6. Lactic acid level is elevated and blood cultures are pending. White count is normal. Will repeat lactic acid level. 7. Further recommendations to follow. 1. Dictated by Asim Medel A.P.R.N. for Robert Canada/toño TD: 05/19/2017 20:23 JOB #: [id number] Unit #: [id number] #: [id number] Patient: KILO TOMLIN HISTORY AND PHYSICAL Page 1 of 1 X Asim Medel APRN X HISTORY AND PHYSICAL
--- NOTE | ~2017-05-19 | CR72 ---
[facility] A Service of [facility] & [facility] RADIOLOGY TEXT RESULTS PATIENT: KILO TOMLIN LOCATION: [facility] [id number] : 31 UNIT #: [id number] AGE: [address]: Cristo Jackson MD SEX: M ORDER DR: [id number] [facility] [address] [place], [place] [address] [id number] MR#: [id number] Acc #: [id number] NAME: KILO TOMLIN : 1930 SEX: M STUDY DATE/TIME: 05/19/2017 UNIT: [facility] ROOM: STUDY DESCRIPTION: CR Chest Single View Portable Attending Physician: Kyree Haley M.D. Ordering Physician: Kyree Haley M.D. Primary Care Physician: Bob Ugalde M.D. MEDICAL IMAGING REPORT This report is preliminary unless electronic signature is present EXAM Chest portable 05/19/1970 1043 hours. HISTORY 86-year-old man with complaint of cough and congestion today. History of atrial fibrillation. COMPARISON PET/CT 05/10/2017, chest x-ray 05/01/2017. FINDINGS Portable upright chest demonstrates moderate cardiomegaly similar to or slightly increased from 05/01/2017. There is masslike opacity in the left upper chest increased from 05/01/2017. This is likely a combination of the previously demonstrated mass with some loculated fluid, as was seen previously. There is interstitial prominence diffusely in the right lung, increased from the prior study, with slight increase in small right pleural effusion. No definite left basilar effusion is seen. IMPRESSION 1. Mild cardiomegaly minimally increased from 05/01/2017. 2. There is persistent, increased mass-like opacity in the left upper lung, likely a combination of increase in size of previously demonstrated mass and some loculated fluid. 3. Diffuse mild interstitial change in the right lung with small right effusion increased from 05/01/2017, raising concern for an element of edema on the right. STAT * RESULT Dictated by... Bessy Yanez M.D. [facility] A Service of [facility] & [facility] RADIOLOGY TEXT RESULTS PATIENT: KILO TOMLIN LOCATION: [place] [address] : 31 UNIT #: [id number] AGE: [address]: Cristo Jackson MD SEX: M ORDER DR: THIS IS AN ELECTRONICALLY VERIFIED REPORT Bessy Yanez M.D. at 05/19/2017 2:28 PM ISAI/clotilde TD: 05/19/2017 11:01 JOB #: [id number] MEDICAL IMAGING REPORT Page 1 of 1 COPY
--- NOTE | ~2017-05-19 | DS ---
Unit #: [id number] #: [id number] Patient: KILO TOMLIN [id number] [facility] [address] [place], [place] [address] [id number] MR#: [id number] NAME: KILO TOMLIN ROOM: 573 Age: 86 Sex: M Admission Date: 05/19/2017 : 1930 Discharge Date: 05/23/2017 Attending Physician: Cristo Jackson M.D. Primary Care Physician: Bob Ugalde M.D. DISCHARGE SUMMARY JOB NOTE: PLEASE VERIFY MRN. DISCHARGE DIAGNOSES 1. Unstable angina. Ruled out for myocardial infarction. 2. Coronary artery disease, status post left cardiac catheterization on 05/20/[address] [facility] per [address] Jackson, revealed 2nd obtuse marginal of the left circumflex 99%. Mid left circumflex 99%. Proximal right coronary artery 90%. Mid right coronary artery 75% with JENNY-3 flow. 3. Status post percutaneous coronary intervention and drug-eluting stent in the 2nd obtuse marginal of left circumflex, mid left circumflex, mid right coronary artery, and proximal right coronary artery. 4. Previous cardiac catheterization on 04/29/2017 revealed ejection fraction of 40% to 45% with moderate aortic stenosis. Peak gradient 29 with a mean of 20 mmHg. Left main with severe calcification. LAD with severe calcification in the proximal portion. LAD with a total chronic occlusion after the 1st septal smelter liner. First diagonal 75% to 80%. Left circumflex in the posterior marginal branch with two areas of 99%. Right coronary artery at the junction of proximal one-third and distal two-thirds 80% to 90%. Mid right coronary artery 75% with distal 40% to 45% diffuse disease. PDA and PLV branches are normal. 5. 2D echocardiogram on 04/28/2017 was a technically difficult study. Global hypokinesis of the LV. Ejection fraction 30%. RVSP 61 mmHg, consistent with moderate severe pulmonary hypertension. Aortic valve area 0.6 cm2 with a maximum gradient of 37 mmHg and mean gradient of 29 mmHg. Findings consistent with severe aortic stenosis, "low-gradient, low-flow state." Moderate mitral regurgitation. No pericardial effusion. 6. Hypertension. 7. Hyperlipidemia. 8. Diabetes mellitus, type 2. 9. Ischemic cardiomyopathy. 10. Chronic systolic congestive heart failure. 11. Persistent atrial fibrillation, now with controlled ventricular response. On chronic anticoagulation with Eliquis. 12. Small-cell lung carcinoma, stage III with history of chemo and radiation. 13. V/Q scan on 05/22/2017 revealed low probability for pulmonary embolism. 14. Mild anemia. 15. Elevated lactic acid with no evidence of sepsis. DISCHARGE MEDICATIONS Tylenol 650 mg p.o. q.6 hours p.r.n. for pain, Eliquis 2.5 mg p.o. b.i.d., metformin 1000 mg p.o. b.i.d., atorvastatin 80 mg p.o. at bedtime, digoxin Unit #: [id number] #: [id number] Patient: NABOR,KILO P 0.125 mg p.o. daily, metoprolol tartrate 12.5 mg p.o. b.i.d., Lasix 20 mg p.o. daily, lisinopril 2.5 mg p.o. at bedtime, aspirin 81 mg p.o. daily, Plavix 75 mg p.o. daily, spironolactone 25 mg p.o. daily, glipizide 10 mg p.o. b.i.d., nitroglycerin 0.4 mg sublingual every 5 minutes x3 p.r.n. for chest pain, potassium chloride 10 mEq p.o. daily. HOSPITAL COURSE This is an 86-year-old white male, known to Dr. Jackson with a past medical history of coronary artery disease with recent cardiac catheterization on 04/29/2017, which revealed multivessel disease and an ejection fraction of 40% to 45%. The patient was found to have at least moderate aortic stenosis. The findings were discussed with Dr. Ortega, and the patient was discharged home with plans for an outpatient PET scan. He is known to have small-cell lung CA with a history of chemo and radiation. Additional past medical history includes hypertension, hyperlipidemia, diabetes mellitus type 2, chronic systolic congestive heart failure, and atrial fibrillation on Eliquis. The patient came into the emergency department on 05/19/2017 with complaints of substernal chest pain and shortness of breath. This started around midnight. The symptoms lasted all night. Prior to the episode, he has been having shortness of breath with exertion as well as angina. In the emergency department, initial EKG revealed atrial fibrillation with rapid ventricular response of 120 beats per minute. He was given Cardizem bolus, and his heart rate improved. Cardiac enzymes were negative with troponin 0.04 and 0.05. BNP was mildly elevated at 560. Chest x-ray revealed no evidence of pulmonary edema. Lactic acid was elevated at 3.7. There were no reports of fever, chills, or remote illness. The patient was admitted for unstable angina and dyspnea. Because of recent PET scan showed improvement of his lung mass per Dr. Ortega, the patient was recommended to proceed with percutaneous coronary intervention. His Eliquis was held. He was continued on aspirin, Plavix, and statin therapy. Pulmonology was consulted for shortness of breath. Blood cultures were obtained on 05/19/2017 and revealed no growth. V/Q scan was completed on 05/22/2017, revealed low probability for pulmonary embolism. The patient remained afebrile. His white blood cell count was normal at 7.7 and 9.4. His procalcitonin was negative at 0.05. He was taken for cardiac catheterization per Dr. Jackson on 05/20/2017. A 2.75 mm x 28 mm Synergy drug-eluting stent was successfully deployed in the 2nd obtuse marginal of the left circumflex. A 3.0 x 28 mm Synergy drug-eluting stent was successfully deployed in the mid left circumflex. A 3.5 x 12 mm Synergy drug-eluting stent was successfully deployed in the proximal right coronary artery. Then, a 3.0 x 12 mm Synergy drug-eluting stent was successfully deployed in the mid right coronary artery. The patient tolerated the procedure well. He was continued on dual-antiplatelet therapy with aspirin and Plavix, probably for life. The mid LAD had a chronic total occlusion and that was not dilated. The distal LAD was found to be filled by ipsilateral collaterals. The patient was transferred to intermediate telemetry for observation. His right wrist is soft without hematoma. His blood pressure has been mildly low. His metoprolol has been decreased. His volume status is stable, and there is no evidence of acute congestive heart failure. His hemoglobin A1c is 6.7 on oral medications. His hemoglobin is 11.3 with a platelet count of 214. The hospitalist was consulted for medical management and sent B12, iron, and folate for further evaluation. The patient was restarted on his Eliquis. His atrial fibrillation was uncontrolled at times. He was Unit #: [id number] #: [id number] Patient: KILO TOMLIN started on digoxin over the weekend and his heart rate is currently in 80s. He has ambulated without complaints and is stable for discharge home with his daughter. He has been instructed to follow up in the office as an outpatient. He is on triple therapy with aspirin, Plavix, and Effient. Education has been provided to the patient at length about medications and procedural site care. The importance of dual antiplatelet therapy for 12 months has been discussed with the patient, and he verbalizes understanding. Prescription for metoprolol, digoxin, potassium, nitroglycerin, and glycerin have been provided to the patient. CONSULTANTS 1. Dr. Vera with Pulmonology. 2. Dr. Marlene Sue with [facility]. PHYSICAL EXAMINATION VITAL SIGNS: Temperature 97.9, pulse 97, blood pressure 107/63. CONSTITUTIONAL: This is an 86-year-old white male, in no acute distress. SKIN: Warm and dry. NECK: Supple. No jugular vein distention. No hepatojugular reflux. Normal carotid upstrokes. No carotid bruits auscultated. HEART: S1 and S2. Irregularly irregular. Systolic ejection murmur at the left sternal border. No rubs or gallops. LUNGS: Bilateral breath sounds have good air entry throughout all lung [place]. Respirations are even and nonlabored. No rales, rhonchi, or wheezes. ABDOMEN: Soft, nontender, and nondistended. Positive bowel sounds auscultated x4 quadrants. No ascites noted. EXTREMITIES: Bilateral lower extremities have no pretibial pitting edema. DP and PT pulses are 2+. Capillary refill is less than 2 seconds. Right wrist is soft, without hematoma. DIAGNOSTIC STUDIES LABORATORY RESULTS: White blood cell count 7.7, hemoglobin 11.3, hematocrit 33.9, platelets 214. Sodium 139, potassium 4.3, chloride 104, CO2 of 29, BUN 13, creatinine 0.9, glucose 84, magnesium 1.9. AST 28, ALT 21, alkaline phos 85, troponin 0.04 and 0.05. Angio CK total 308, MB 55.8, percentage MB 9.5 and 18.1. BNP 785 and 560. Hemoglobin A1c 6.7. Lactic acid 4.6. Total cholesterol 120, triglycerides 87, LDL 68, HDL 43, TSH 1.27. INR 1.1. IMAGING STUDIES: V/Q scan on 05/22/2017 was low probability for PE. Chest x-ray on 05/22/2017 revealed a left suprahilar mass with pleural thickening and probable loculated pleural effusion. No new infiltrate since previous study. CARDIOVASCULAR STUDIES: EKG reveals atrial fibrillation with a ventricular rate of 92 beats per minute. No acute ST or T-wave changes. DISCHARGE INSTRUCTIONS 1. The patient will be discharged home today. 2. Follow up with primary care provider in 1 to 2 weeks. 3. Follow up with Dr. Vera with Pulmonology in 2 to 4 weeks. 4. Follow up with Dr. Ortega as instructed as an outpatient. 5. Follow up with Dr. Jackson on 07/12/2017 at 2:00 p.m. 6. Postcatheterization instructions provided. 7. The patient has been recommended for cardiac rehab. Unit #: [id number] #: [id number] Patient: KILO TOMLIN Dictated by... Sharee Isaac APRN for Robert Canada/zofia TD: 05/25/2017 22:56 JOB #: [id number] DISCHARGE SUMMARY Page 1 of 1 X X DISCHARGE SUMMARY
--- NOTE | ~2017-05-19 | EKG ---
PATIENT: KILO TOMLIN UNIT #: [id number] Ventricular Rate: 103 BPM Atrial Rate: 375 BPM QRS Duration: 110 ms Q-T Interval: 366 ms QTC Calculation(Bezet): 479 ms Calculated R [place]: -7 degrees Calculated T [place]: 83 degrees Diagnosis Line: Atrial fibrillation with rapid ventricular Diagnosis Line: response Diagnosis Line: Minimal voltage criteria for LVH, may be normal Diagnosis Line: variant Diagnosis Line: Septal infarct , age undetermined Diagnosis Line: Abnormal ECG Diagnosis Line: When compared with ECG of 01-MAY-2017 05:56, Diagnosis Line: Nonspecific T wave abnormality no longer evident Diagnosis Line: in Inferior leads Diagnosis Line: Confirmed by EVER OCHOA MD ([id number]) on 05/21/2017 Diagnosis Line: 3:22:56 PM INTERPRETING MD: GABRIELA LOW
--- NOTE | ~2017-05-19 | EKG ---
PATIENT: KILO TOMLIN UNIT #: [id number] Ventricular Rate: 115 BPM Atrial Rate: 113 BPM QRS Duration: 104 ms Q-T Interval: 342 ms QTC Calculation(Bezet): 473 ms Calculated R [place]: -11 degrees Calculated T [place]: 61 degrees Diagnosis Line: Atrial fibrillation with rapid ventricular Diagnosis Line: response Diagnosis Line: Septal infarct (cited on or before 19-MAY-2017) Diagnosis Line: Abnormal ECG Diagnosis Line: When compared with ECG of 19-MAY-2017 10:09, Diagnosis Line: ST now depressed in Inferior leads Diagnosis Line: Confirmed by EVER OCHOA MD ([id number]) on 05/21/2017 Diagnosis Line: 3:43:28 PM INTERPRETING MD: GABRIELA LOW
--- NOTE | ~2017-05-19 | EKG ---
PATIENT: KILO TOMLIN UNIT #: [id number] Ventricular Rate: 92 BPM Atrial Rate: 85 BPM QRS Duration: 110 ms Q-T Interval: 384 ms QTC Calculation(Bezet): 474 ms Calculated R [place]: -5 degrees Calculated T [place]: 109 degrees Diagnosis Line: Atrial fibrillation Diagnosis Line: Poor R wave progression questionable lead position Diagnosis Line: or body habitus Diagnosis Line: Abnormal ECG Diagnosis Line: When compared with ECG of 20-MAY-2017 13:29, Diagnosis Line: (unconfirmed) Diagnosis Line: No significant change was found Diagnosis Line: Confirmed by MAYE PLATT MD ([id number]) on Diagnosis Line: 05/21/2017 3:59:06 PM INTERPRETING MD: CRISTIAN
--- NOTE | ~2017-05-19 | CO ---
Unit #: [id number] #: [id number] Patient: KILO TOMLIN [id number] [address] [place], [place] [address] [id number] I MR#: [id number] NAME: KILO TOMLIN. ROOM: 330 Age: 86 Sex: M Admission Date: 05/19/2017 : 1930 Attending Physician: Cristo Jackson M.D. Primary Care Physician: Bob Ugalde M.D. Consultation Date: 05/19/2017 CONSULTATION REPORT REASON FOR CONSULTATION Sepsis. HISTORY OF PRESENT ILLNESS The patient is an 86-year-old male with past medical history of coronary artery disease, small cell lung cancer, CHF, hypertension, valvular heart disease, pulmonary hypertension, hyperlipidemia, diabetes, degenerative joint disease, who was admitted by Dr. Jackson for atrial fibrillation with rapid ventricular response. The patient states that he started feeling poorly around 1:00 a.m. this morning. He states that he has had increasing shortness of breath. He states that he was already awake at that time. He denies any fever. He has a cough but he states that that is actually improving. It has been nonproductive. He denies any chest pain. He has had decreased appetite but no vomiting or diarrhea. He denies any swelling in his legs. He has lost weight in association with chemotherapy and radiation. However, he states that he has been gaining some weight back. He does have dyspnea on exertion when walking across the room. In the emergency department initial temperature was 97.5, pulse 120, respirations 20, blood pressure 105/84, oxygen saturation 97% on room air. EKG showed atrial fibrillation with rapid ventricular response and a rate of 103 beats per minute. He was given 20 mg of Cardizem as well as a 500 mL normal saline bolus. Heart rate is currently 73. Chest x-ray was done and showed mild cardiomegaly, minimally increased. A persistent masslike opacity in the left upper lobe was noted. The possibility of loculated fluid cannot be ruled out. There is also a small right pleural effusion. Initial lactic acid was 3.7; repeat approximately 3.5 hours later was 4.6. HIPS was consulted due to concern for sepsis. The patient has not been given any antibiotics. PAST MEDICAL HISTORY 1. Admission to [facility] April 27-2016 for non-ST elevation myocardial infarction, atrial fibrillation with rapid ventricular response. The patient had a cardiac catheterization during that admission that showed an ejection fraction of about 40% with 70% stenosis of the LAD at the first diagonal, 100% after the first diagonal, mid circumflex 99%, RCA 90% proximally, 75% mid and 60% distally. Per the discharge summary the plan was for outpatient PET CT and subsequent decision regarding proceeding with stenting. 2. Atrial fibrillation on chronic anticoagulation with Eliquis. Unit #: [id number] #: [id number] Patient: KILO TOMLIN 3. Small cell lung cancer followed by Dr. Ortega, stage III, status post chemotherapy and radiation with last chemotherapy and radiation being in March of 2017. He did have a PET CT on May 12, 2017 that showed decreased size of the left upper lobe mass with stable to slightly smaller mediastinal lymph nodes. A moderate left pleural effusion and small right pleural effusion were also noted. 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 4. Congestive heart failure. There is an echocardiogram on the chart from April 28, 2017 that showed an ejection fraction of 30%. 5. Hypertension. 6. Valvular heart disease. The echocardiogram from April 28, 2017 showed severe aortic stenosis, moderate mitral regurgitation. 7. Pulmonary hypertension, again echocardiogram from April 28, 2017 showed a right ventricular systolic pressure of 61 mmHg. 8. Diabetes. 9. Hyperlipidemia. 10. Degenerative joint disease. PAST SURGICAL HISTORY 1. Cardiac catheterization during last admission in April of 2017 per the discharge summary showed coronary artery disease. Please see HPI for details. 2. Cataract surgery. 3. Bilateral knee surgery. 4. Hip surgery. 5. Tonsillectomy. SOCIAL HISTORY The patient lives with his daughter. He quit smoking 30 years ago. There is no alcohol use. He typically walks without assistance but does have a cane available if necessary. FAMILY HISTORY Family history is notable for coronary artery disease. ALLERGIES No known allergies. HOME MEDICATIONS Include: 1. Tylenol 650 p.o. q.4 hours p.r.n. 2. Eliquis 2.5 mg twice daily. 3. Glucophage 1000 mg twice daily. 4. Atorvastatin 80 mg at bedtime. 5. Lopressor 25 mg twice daily. 6. Lasix 20 mg daily. 7. Zestril 2.5 mg at bedtime. 8. Plavix 75 mg daily. 9. Aldactone 25 mg daily. 10. Glipizide 10 mg twice daily. REVIEW OF SYSTEMS A complete review of systems is negative except as indicated in the DIAGNOSTIC STUDIES CARDIAC: EKG shows atrial fibrillation with rapid ventricular response and a rate of 103 beats per minute. Unit #: [id number] #: [id number] Patient: KILO TOMLIN IMAGING: Chest x-ray shows persistent increased masslike opacity in the left upper lung with possible associated loculated fluid. There is also a small right pleural effusion. PET CT from May 10, 2017 showed decreased size of left upper lobe mass with stable to slightly smaller mediastinal lymph nodes, a right pleural effusion was also noted as well as moderate left pleural effusion. LABORATORY: Initial lactic acid 3.7, repeat 3.5 hours later was 4.6. BNP is 560. Complete blood count notable for hemoglobin of 12.9. Troponin is less than 0.05. INR is 1.1. Comprehensive metabolic panel notable for glucose of 231. Magnesium is 1.6. PHYSICAL EXAMINATION VITAL SIGNS: Temperature is 97.5. Pulse 120. Respirations 20. Blood pressure 105/84. Oxygen saturation 97% on room air. GENERAL: The patient is a very pleasant male who is awake and alert, in no acute distress. HEENT: The head is atraumatic. Mucous membranes are moist. NECK: Neck is supple. Trachea is midline. CARDIOVASCULAR: Is irregular. LUNGS: Demonstrate a few scattered rhonchi and crackles. Breathing is mildly labored. ABDOMEN: Abdomen is soft, nontender, with bowel sounds all four quadrants. EXTREMITIES: Are nontender with no pedal edema. NEUROLOGIC: The patient is awake and alert. He follows commands. PSYCH: Mood and affect are normal. The patient is cooperative. SKIN: Of examined areas is warm and dry. ASSESSMENT The patient is an 86-year-old male with: 1. Atrial fibrillation with rapid ventricular response. The patient received 20 mg of Cardizem in the emergency department. Heart rate is currently in the 70s. Cardiology admitted the patient. 2. Possible sepsis. The patient's lactic acid was initially 3.7 and has increased to 4.6. Chest x-ray shows left upper lobe mass with possible associated loculated fluid. The patient however states that his cough has improved. He denies any fever. His white blood cell count is normal. I have ordered Zosyn pending further workup for a possible postobstructive pneumonia. Will also discuss with Dr. Vera. Lactic acid could be elevated due to the patient being on metformin. I have ordered that this medication be held. 3. Possible pneumonia. See discussion above. 4. Coronary artery disease. There is an order on the chart to consent for PCI and stent. 5. Small cell lung cancer. The left upper lobe mass has decreased in size according to PET CT from May 10, 2017. The patient completed radiation and chemotherapy in March. He is followed by Dr. Ortega. 6. Congestive heart failure with ejection fraction of 30% noted on echocardiogram April 28, 2017. 7. Hypertension. 8. Valvular heart disease, severe aortic stenosis. 9. Pulmonary hypertension with right ventricular systolic pressure of 61 mmHg. 10. Diabetes. 11. Hyperlipidemia. Unit #: [id number] #: [id number] Patient: KILO TOMLIN 12. Degenerative joint disease. 13. Former smoker. PLAN Regarding possible sepsis I have ordered blood cultures x2 as well as sputum culture and sensitivity. Additionally I have ordered a procalcitonin level, streptococcal and Legionella urine antigens. I have also ordered supplemental oxygen as well as p.r.n. DuoNebs. I have not ordered the IV fluids per the sepsis protocol due to the patient having an ejection fraction of 30% and my low clinical suspicion for this truly being sepsis. I have however ordered Zosyn pending further workup. Elevated lactic acid may be due to metformin so I have held this medication. Additionally I have ordered urinalysis with culture and sensitivity to rule out other possible source of infection. Thank you very much for the consultation. We will follow the patient along closely with you. Dictated by... Marlene Sue M.D. ADELINA/lesli TD: 05/19/2017 19:26 JOB #: [id number] CONSULTATION REPORT Page 1 of 1 X Marlene Sue MD X CONSULTATION REPORT
--- NOTE | ~2017-05-19 | CO ---
Unit #: [id number] #: [id number] Patient: KILO TOMLIN [id number] [address] [place], [place] [address] [id number] I MR#: [id number] NAME: KILO TOMLIN. ROOM: 330 Age: 86 Sex: M Admission Date: 05/19/2017 : 1930 Attending Physician: Cristo Jackson M.D. Primary Care Physician: Bob Ugalde M.D. Consultation Date: 05/19/2017 CONSULTATION REPORT REASON FOR CONSULT Shortness of breath. CHIEF COMPLAINT Shortness of breath. HISTORY OF PRESENT ILLNESS This is a very pleasant 86-year-old male with a past medical history significant for lung cancer, diabetes, congestive heart failure who presented to the emergency room with shortness of breath. Per patient, he was just discharged from the hospital a couple of weeks ago after admission for shortness of breath. He stated that he went home and he was feeling somewhat better but not completely back to baseline and then for the last few days he was getting again progressively short-winded but he denied any fever, chills or night sweats. There was no productive cough. PAST MEDICAL HISTORY 1. Lung cancer. 2. Diabetes. 3. Vocal cord paralysis. 4. Hypertension. 5. Hyperlipidemia. 6. Degenerative joint disease. PAST SURGICAL HISTORY 1. Bilateral total knee replacement. 2. Left total hip replacement. 3. Cataract extraction. ALLERGIES No known drug allergy. HOME MEDICATIONS 1. Glipizide. 2. Metformin. FAMILY HISTORY Coronary artery disease. SOCIAL HISTORY Patient lives with his daughter. He quit smoking 30 years ago. No history of alcohol or drug abuse. Unit #: [id number] #: [id number] Patient: KILO TOMLIN REVIEW OF SYSTEMS 12-point review of system were obtained and were negative except for what was mentioned in the HPI. PHYSICAL EXAMINATION GENERAL: The patient is very pleasant, in no acute distress. VITAL SIGNS: Blood pressure is 115/81, respiratory rate 16, O2 saturation 98% on room air. HEENT: Atraumatic, normocephalic. PERRLA, EOMI. NECK: Supple. No JVD, no lymphadenopathy. CHEST: Decreased breath sounds bilaterally with no wheezing. HEART: S1, S2. No murmur, gallops or rubs. ABDOMEN: Soft, nontender. Bowel sound is positive. No hepatosplenomegaly. EXTREMITIES: No edema or cyanosis. SKIN: No rashes. 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 No focal motor/sensory deficits. LABS AND OTHER TESTS LABORATORY: Creatinine 1.1, CO2 26, digoxin 0.9, white blood count 9.4. Hemoglobin 12.9. IMAGING: Chest x-ray is reviewed (1) . ASSESSMENT 1. Dyspnea. 2. Lung cancer. 3. Coronary artery disease. 4. Lactic acidosis. 5. Anemia. 6. Ex-smoker. 7. Vocal cord paralysis. PLAN 1. Patient doesn't appear septic in spite of his elevated lactic acid. His chest x-ray is concerning for slight pulmonary edema and mainly left upper lobe malignancy. 2. I will hold his antibiotics given his normal white blood count and lack of fever and normal procalcitonin. His lactic acidosis probably is related to malignancy and poor perfusion. 3. Left heart cath tomorrow. 4. Bronchoscopy if patient spikes fever. 5. DVT prophylaxis. I would like thank Dr. Pierre for allowing me to be part of this patient care. Dictated by... Robert Dsouza TD: 05/20/2017 07:38 JOB #: [id number] Unit #: [id number] #: [id number] Patient: KILO TOMLIN CONSULTATION REPORT Page 1 of 1 X LALO LOZANO MD X CONSULTATION REPORT
[~2017-05-19 09:26] MED LIST changes: +ACETAMINOPHEN325 MG PO; +ALDACTONE25 MG PO; +CLOPIDOGREL75 MG PO; +ELIQUIS2.5 MG PO; +GLIPIZIDE10 MG PO; +LASIX20 MG PO; +LIPITOR80 MG PO; +METFORMIN PO; +METOPROLOL TAR25 MG PO; +ZESTRIL2.5 MG PO
[2017-05-19 10:38] LABS: BASOPHIL% 0.4 % (0-2.5); DIFF IND NO; EOSINOPHIL# 0.1 X10e3 (0-0.7); EOSINOPHIL% 1.2 % (0.0-7.0); HEMATOCRIT 39.2 % (38.0-50.0); HEMOGLOBIN 12.9 gm/dL (13.0-16.0); LYMPHOCYTE# 0.7 X10e3 (1.0-3.5); LYMPHOCYTE% 7.3 % (17.0-45.0); MEAN CELL VOLUME 92.9 FL (83-96); MEAN CORPUSCULAR HEMOGLOBIN 30.6 PG (28-34); MEAN CORPUSCULAR HGB CONC 32.9 g/dL (30-36); MONOCYTE# 0.5 X10e3 (0-1.0); MONOCYTE% 5.1 % (3.0-12.0); NEUTROPHIL# 8.1 X10e3 (1.5-7.1); PLATELET COUNT 290 X10e3 (140-420); RED BLOOD COUNT 4.22 X10e (3.90-5.60); RED CELL DISTRIBUTION WIDTH 16.2 % (11.0-15.5); WHITE BLOOD COUNT 9.4 X10e3 (4.0-10.5)
[2017-05-19 10:48] LABS: POC - CKMB 1.7 ng/mL (0.0-7.9); POC - TROPONIN <0.05 ng/mL (<=0.05)
[2017-05-19 10:50] LABS: INR 1.1; PARTIAL THROMBOPLASTIN TIME 23.1 SECONDS (23.5-31.3); PROTHROMBIN TIME (PATIENT) 11.9 SECONDS (10.0-11.7)
[2017-05-19 11:52] LABS: ALBUMIN SERUM 3.6 g/dL (3.5-5.0); BILIRUBIN, DIRECT 0.2 mg/dL (0.0-0.2); BILIRUBIN,INDIRECT 0.5 mg/dL (0.0-0.9); BILIRUBIN,TOTAL 0.7 mg/dL (0.2-2.0); BUN/CREATININE RATIO 15.45; CALCIUM SERUM 9.1 mg/dL (8.4-10.2); CREATININE SERUM 1.1 mg/dL (0.6-1.4); GLOM FILT RATE Estimated 60.9 mL/min (>60); MAGNESIUM 1.6 mg/dL (1.6-3.0); POTASSIUM 4.1 mmol/L (3.5-5.1); PROTEIN TOTAL SERUM 7.2 g/dL (6.0-8.3)
[2017-05-19 12:27] LABS: POC - CKMB 1.6 ng/mL (0.0-7.9); POC - TROPONIN <0.05 ng/mL (<=0.05)
[2017-05-19] MEDS ORDERED: ACETAMINOPHEN650 M3 PO (12:31)
[2017-05-19] MEDS ORDERED: ATORVASTATIN CA80 MG PO (12:32)
[2017-05-19] MEDS ORDERED: LOPRESSOR PO (12:32)
[2017-05-19] MEDS ORDERED: METFORMIN PO (12:32)
[2017-05-19] MEDS ORDERED: ELIQUIS2.5 MG PO (12:32)
[2017-05-19] MEDS ORDERED: LASIX20 MG PO (12:33)
[2017-05-19] MEDS ORDERED: LISINOPRIL PO (12:33)
[2017-05-19] MEDS ORDERED: ALDACTONE PO (12:33)
[2017-05-19] MEDS ORDERED: CLOPIDOGREL75 MG PO (12:33)
[2017-05-19] MEDS ORDERED: GLUCOTROL PO (12:33)
[2017-05-19 16:28] LABS: URINE SOURCE CLEAN CATCH
[2017-05-19 16:37] LABS: URINE APPEARANCE CLEAR; URINE BILIRUBIN NEG (NEG); URINE BLOOD NEG (NEG); URINE COLOR YELLOW; URINE GLUCOSE NEG (NEG); URINE KETONE NEG (NEG); URINE LEUKOCYTE ESTERASE NEG (NEG); URINE NITRATE NEG (NEG); URINE PROTEIN NEG (NEG); URINE SPECIFIC GRAVITY 1.016 (1.003-1.035); URINE UROBILINOGEN 0.2 MG/DL (NEG)
[2017-05-19 16:47] LABS: CULTURE INDICATED? NO
[2017-05-19 18:36] LABS: CK TOTAL 29 IU/L (36-174)
[2017-05-20 00:37] LABS: CK TOTAL 36 IU/L (36-174)
[2017-05-20 06:08] LABS: HEMATOCRIT 36.9 % (38.0-50.0); HEMOGLOBIN 12.1 gm/dL (13.0-16.0); MEAN CORPUSCULAR HEMOGLOBIN 29.8 PG (28-34); MEAN CORPUSCULAR HGB CONC 32.7 g/dL (30-36); MEAN PLATELET VOLUME 8.8 FL (6.5-11.5); RED BLOOD COUNT 4.05 X10e (3.90-5.60); RED CELL DISTRIBUTION WIDTH 16.1 % (11.0-15.5); WHITE BLOOD COUNT 7.8 X10e3 (4.0-10.5)
[2017-05-20 06:47] LABS: BUN/CREATININE RATIO 21.25; CALCIUM SERUM 8.5 mg/dL (8.4-10.2); CREATININE SERUM 0.8 mg/dL (0.6-1.4); GLOM FILT RATE Estimated 81.5 mL/min (>60); MAGNESIUM 1.9 mg/dL (1.6-3.0)
[2017-05-20 06:48] LABS: POTASSIUM 2.9 mmol/L (3.5-5.1)
[2017-05-20 09:26] LABS: LEGIONELLA AG URINE NEG (NEG)
[2017-05-20 21:46] LABS: ANGIO %MB 19.5 % (0.0-4.0); ANGIO MB 36.2 ng/ml
[2017-05-21 06:07] LABS: CALCIUM SERUM 8.5 mg/dL (8.4-10.2); CREATININE SERUM 0.8 mg/dL (0.6-1.4); GLOM FILT RATE Estimated 81.5 mL/min (>60); POTASSIUM 3.4 mmol/L (3.5-5.1)
[2017-05-21 06:31] LABS: ANGIO %MB 18.1 % (0.0-4.0); ANGIO MB 55.8 ng/ml
[2017-05-22 06:32] LABS: HEMATOCRIT 33.4 % (38.0-50.0); HEMOGLOBIN 11.1 gm/dL (13.0-16.0); MEAN CELL VOLUME 91.7 FL (83-96); MEAN CORPUSCULAR HEMOGLOBIN 30.4 PG (28-34); MEAN CORPUSCULAR HGB CONC 33.1 g/dL (30-36); MEAN PLATELET VOLUME 8.7 FL (6.5-11.5); RED BLOOD COUNT 3.64 X10e (3.90-5.60); RED CELL DISTRIBUTION WIDTH 15.9 % (11.0-15.5); WHITE BLOOD COUNT 8.4 X10e3 (4.0-10.5)
[2017-05-22 07:17] LABS: BUN/CREATININE RATIO 17.77; CALCIUM SERUM 8.5 mg/dL (8.4-10.2); CREATININE SERUM 0.9 mg/dL (0.6-1.4); GLOM FILT RATE Estimated 77.6 mL/min (>60); POTASSIUM 4.3 mmol/L (3.5-5.1)
[2017-05-23 05:43] LABS: HEMATOCRIT 33.9 % (38.0-50.0); HEMOGLOBIN 11.3 gm/dL (13.0-16.0); MEAN CELL VOLUME 90.8 FL (83-96); MEAN CORPUSCULAR HEMOGLOBIN 30.4 PG (28-34); MEAN CORPUSCULAR HGB CONC 33.4 g/dL (30-36); MEAN PLATELET VOLUME 8.5 FL (6.5-11.5); RED BLOOD COUNT 3.73 X10e (3.90-5.60); RED CELL DISTRIBUTION WIDTH 15.9 % (11.0-15.5); WHITE BLOOD COUNT 7.7 X10e3 (4.0-10.5)
[2017-05-23 06:48] LABS: BUN/CREATININE RATIO 14.44; CALCIUM SERUM 8.6 mg/dL (8.4-10.2); CREATININE SERUM 0.9 mg/dL (0.6-1.4); GLOM FILT RATE Estimated 77.6 mL/min (>60); POTASSIUM 4.3 mmol/L (3.5-5.1)
[2017-05-23] MEDS ORDERED: LANOXIN125 MCG PO (13:19)
[2017-05-23] MEDS ORDERED: ASPIRIN81 MG PO (13:20)
[2017-05-23] MEDS ORDERED: NITROGLYGERIN0.4 MG SL (13:21)
[2017-05-23] MEDS ORDERED: K-DUR10 MEQ PO (13:21)
== END 2017-05-23 14:53 | disposition home or self-care (01) | DRG 246 ==
LOC: CED 09:26 → C5C 12:50 → CEDOF 12:50 → CED 14:02 → CEDOF 14:02 → C3A PCU 16:48 → CEDOF 16:48 → C3A PCU 16:48 → C5C 05-20 19:35
PROVIDERS: Emergency Medicine; Family Medicine; Internal Medicine Cardiovascular Disease; Nurse Practitioner
PROC: 027137Z Dilation of Coronary Artery, Two Arteries with Four or More Drug-eluting Intraluminal Devices, Percutaneous Approach (ICD-10-PCS; principal; 2017-05-20)
PROC: 4A023N7 Measurement of Cardiac Sampling and Pressure, Left Heart, Percutaneous Approach (ICD-10-PCS; 2017-05-20)
PROC: B215YZZ Fluoroscopy of Left Heart using Other Contrast (ICD-10-PCS; 2017-05-20)
PROC: B211YZZ Fluoroscopy of Multiple Coronary Arteries using Other Contrast (ICD-10-PCS; 2017-05-20)
DX: I25.110 Atherosclerotic heart disease of native coronary artery with unstable angina pectoris (principal); I50.23 Acute on chronic systolic (congestive) heart failure; E87.2 Acidosis; I25.82 Chronic total occlusion of coronary artery; I27.2 Other secondary pulmonary hypertension; J38.00 Paralysis of vocal cords and larynx, unspecified; C34.90 Malignant neoplasm of unspecified part of unspecified bronchus or lung; I11.0 Hypertensive heart disease with heart failure; Z87.891 Personal history of nicotine dependence; I35.0 Nonrheumatic aortic (valve) stenosis; E11.9 Type 2 diabetes mellitus without complications; Z79.84 Long term (current) use of oral hypoglycemic drugs; I48.91 Unspecified atrial fibrillation; E78.5 Hyperlipidemia, unspecified; Z98.49 Cataract extraction status, unspecified eye; Z96.653 Presence of artificial knee joint, bilateral; Z96.642 Presence of left artificial hip joint; Z82.49 Family history of ischemic heart disease and other diseases of the circulatory system; E87.6 Hypokalemia; E83.51 Hypocalcemia; I25.2 Old myocardial infarction; D53.9 Nutritional anemia, unspecified
CPT/HCPCS: 36415; 71010; 71020; 78582; 80048; 80061; 80076; 81003; 82308; 82550; 82553; 82947; 83036; 83605; 83735; 83880; 84132; 84443; 84484; 85025; 85027; 85347; 85610; 85730; 87040; 87449; 87899; 93005; 94760; 96361; 96374; 97110; 97116; 97162; 99152; 99153; 99285; A9540; A9567; C1725; C1769; C1874; C1887; C1894; G8978-GP; G8979-GP; J1160; J1644; J1940; J2250; J2370; J2543; J3010; J3475